=== PATIENT | female | born 1965 | race American Indian/Alaskan Native ===

== ENCOUNTER 2017-03-22 14:46 | Outpatient (CLI) | payer OTHER ==
--- NOTE | 2017-03-23 09:03 | XRay Report ---
Right shoulder: Multiple myeloma with focal pain on pressure to right shoulder. There is mixed sclerotic and lucent changes involving the glenoid and acromion. The joint is aligned. Compared to prior chest exam on December 10, 2015 there is more sclerosis. The sclerotic changes may be due to focal therapy and needs history correlation. The head of the humerus appears to be generally intact but not optimally visualized. Impressions: Interval sclerotic/lytic changes of right glenoid. These findings may be related to myeloma with treatment. Right rib series: Multiple myeloma with right with pain. Routine views demonstrate a somewhat mottled appearance with lytic change involving the third, fourth, fifth, sixth, seventh, and eighth ribs. There appears to be a focal expansion of the eighth rib possibly from prior fracture. The lower or ribs are not as well-visualized. Compared to metastatic bone survey in November 2015 there appears to be some progression of these findings. Impressions: Findings consistent with myeloma involvement of multiple ribs.
== END 2017-03-22 14:47 | disposition home or self-care (01) ==
LOC: XRAY 14:46
PROVIDERS: ATTEND Family Medicine
DX: R07.81 Pleurodynia (principal); M79.621 Pain in right upper arm; R10.9 Unspecified abdominal pain; M89.9 Disorder of bone, unspecified; I10 Essential (primary) hypertension; D64.9 Anemia, unspecified

== ENCOUNTER 2019-06-27 13:51 | Inpatient (IN) | payer MEDICARE ==
--- NOTE | 2019-06-27 14:13 | Emergency Department Report ---
ED Dizziness HPI - General Chief Complaint: Weakness Stated Complaint: weak Time Seen by Provider: 06/27/19 14:11 Source: patient, EMS Mode of arrival: Ambulatory Limitations: No Limitations - History of Present Illness Initial Comments: Pt is a 53 yo AA female who appears much older than stated age and who is ill appearing- who was sent to the ER by Dr Yun for anemia. Pt was diagnosed with Multiple Myeloma several years ago - she has received chemo. Pt co weakness and right knee pain. No fall or trauma. Denies fever. Endorses chills. No hypotension or tachycardia on admit. No fever on admit. Pt denies chest pain, abdominal pain, difficulty urinating. alert and oriented x 4. no focal neuro deficit on arrival to ER. pt does get sob when talking- so h/p limited at this time. no family at bedside. MD Complaint: lightheadedness -: Gradual, days(s) History of Same: Yes History of Trauma: No Associated Symptoms: shortness of breath - Related Data Home Medications Medication Instructions Recorded Confirmed Last Taken Dabigatran [Pradaxa] 150 mg PO DAILY 09/03/13 03/15/16 09/02/13 08:30 150 mg Diclofenac EC [Voltaren] 25 mg PO DAILY 09/03/13 03/15/16 09/01/13 18:30 25 mg Insulin Glargine,Hum.rec.anlog 15 units SQ HS 09/03/13 03/15/16 09/02/13 21:30 [Lantus Solostar] 15 units Morphine ER [Ms Contin ER] 60 mg PO BID PRN 09/03/13 03/15/16 09/02/13 21:30 60 mg NIFEdipine [Nifedipine ER] 30 mg PO DAILY 09/03/13 03/15/16 03/14/16 30 mg Oxycodone HCl 30 mg PO Q6HR PRN 09/03/13 03/15/16 03/09/16 30 mg Allergies Allergy/AdvReac Type Severity Reaction Status Date / Time No Known Allergies Allergy Verified 05/01/13 12:07 ED Review of Systems ROS: Stated complaint: DIZZY,CONFUSED Other details as noted in HPI Comment: All other systems reviewed and negative ED Past Medical Hx - Past Medical History Previous Medical History?: Yes Hx Hypertension: Yes Hx CVA: No Hx Heart Attack/AMI: No Hx Congestive Heart Failure: No Hx Diabetes: Yes Hx Deep Vein Thrombosis: Yes Hx Pulmonary Embolism: Yes (ivc filter) Hx GERD: No Hx Liver Disease: No Hx Renal Disease: No Hx of Cancer: Yes Hx Sickle Cell Disease: No Hx Arthritis: No Hx Headaches / Migraines: No Hx Seizures: No Hx Kidney Stones: No Hx Psychiatric Treatment: No Hx Asthma: No Hx COPD: No Hx Tuberculosis: No Hx Dementia: No Hx HIV: No Additional medical history: Multiple myeloma - Surgical History Past Surgical History?: Yes Hx Coronary Stent: No Hx Open Heart Surgery: No Hx Pacemaker: No Hx Internal Defibrillator: No Hx Cholecystectomy: No Hx Appendectomy: No Hx Breast Surgery: No Additional Surgical History: thigh/hip surgery - Family History Family history: no significant - Social History Smoking Status: Never Smoker Substance Use Type: None - Medications Home Medications: Home Medications Medication Instructions Recorded Confirmed Last Taken Type Dabigatran [Pradaxa] 150 mg PO DAILY 09/03/13 03/15/16 09/02/13 08:30 History 150 mg Diclofenac EC [Voltaren] 25 mg PO DAILY 09/03/13 03/15/16 09/01/13 18:30 History 25 mg Insulin Glargine,Hum.rec.anlog 15 units SQ HS 09/03/13 03/15/16 09/02/13 21:30 History [Lantus Solostar] 15 units Morphine ER [Ms Contin ER] 60 mg PO BID PRN 09/03/13 03/15/16 09/02/13 21:30 History 60 mg NIFEdipine [Nifedipine ER] 30 mg PO DAILY 09/03/13 03/15/16 03/14/16 History 30 mg Oxycodone HCl 30 mg PO Q6HR PRN 09/03/13 03/15/16 03/09/16 History 30 mg ED Physical Exam - General Limitations: No Limitations General appearance: alert - Head Head exam: Present: atraumatic, normocephalic - Eye Eye exam: Present: normal appearance - ENT ENT exam: Present: mucous membranes dry - Neck Neck exam: Present: normal inspection - Respiratory Respiratory exam: Present: normal lung sounds bilaterally. Absent: respiratory distress - Cardiovascular Cardiovascular Exam: Present: regular rate, normal rhythm, tachycardia. Absent: systolic murmur, diastolic murmur, rubs, gallop - GI/Abdominal GI/Abdominal exam: Present: soft, normal bowel sounds - Rectal Rectal exam: Present: deferred - Extremities Exam Extremities exam: Present: normal inspection - Expanded Lower Extremity Exam Right Upper Leg exam: Present: normal inspection Knee exam: Present: tenderness (post r knee red/tender and inflammed- no trauma; no distal swelling; dp plus 2 b; hx dvt; ivc filter; unlikely dvt given plt count. ), swelling, erythema, full knee extension Lower Leg exam: Present: normal inspection - Back Exam Back exam: Present: normal inspection - Neurological Exam Neurological exam: Present: alert, oriented X3 - Psychiatric Psychiatric exam: Present: normal affect, normal mood - Skin Skin exam: Present: warm, dry, intact. Absent: rash ED Course Vital Signs 06/27/19 06/27/19 06/27/19 14:00 14:04 14:19 Temperature 99.8 F H Pulse Rate 92 H 92 H Respiratory 20 20 20 Rate Blood Pressure 107/57 Blood Pressure 107/57 [Right] O2 Sat by Pulse 100 100 98 Oximetry ED Medical Decision Making - Lab Data Result diagrams: 06/27/19 15:22 06/27/19 14:37 - EKG Data -: EKG Interpreted by Ut EKG shows normal: sinus rhythm Rate: normal - EKG Data When compared to previous EKG there are: no significant change Interpretation: no acute changes - Radiology Data Radiology results: report reviewed, image reviewed - Medical Decision Making Labs 06/27/19 06/27/19 06/27/19 14:37 14:37 14:37 WBC RBC Hgb Hct MCV MCH MCHC RDW Plt Count Branch % (Auto) Baso % (Auto) Seg Neutrophils % PT 16.1 H INR 1.31 H APTT 33.9 Sodium 131 L Potassium 3.3 L Chloride 97.3 L Carbon Dioxide 19 L Anion Gap 18 BUN 15 Creatinine 0.7 Estimated GFR > 60 BUN/Creatinine Ratio 21 Glucose 277 H Calcium 8.8 Total Bilirubin 1.90 H AST 10 ALT 10 Alkaline Phosphatase 44 Troponin T < 0.010 Total Protein 6.8 Albumin 3.6 L Albumin/Globulin Ratio 1.1 HCG, Qual Negative Blood Type Antibody Screen Crossmatch 06/27/19 06/27/19 14:37 15:22 WBC 1.6 L* RBC 2.43 L Hgb 7.4 L Hct 21.4 L MCV 88 MCH 31 MCHC 35 H RDW 22.6 H Plt Count 12 L* Branch % (Auto) [employer] Baso % (Auto) [employer] Seg Neutrophils % [employer] PT INR APTT Sodium Potassium Chloride Carbon Dioxide Anion Gap BUN Creatinine Estimated GFR BUN/Creatinine Ratio Glucose Calcium Total Bilirubin AST ALT Alkaline Phosphatase Troponin T Total Protein Albumin Albumin/Globulin Ratio HCG, Qual Blood Type A POSITIVE Antibody Screen Negative Crossmatch See Detail Vital Signs 06/27/19 06/27/19 06/27/19 14:00 14:04 14:19 Temperature 99.8 F H Pulse Rate 92 H 92 H Respiratory 20 20 20 Rate Blood Pressure 107/57 Blood Pressure 107/57 [Right] O2 Sat by Pulse 100 100 98 Oximetry labs noted discussed with Dr Yun who would like pt to be admitted- will get 1 plt/1 RBC. pt co r knee pain concerning for cellulitis will cover with antibiotics p blood cultures and urine cultures are sent pt updated on plan of care Staffed with Dr Dennis Discussed case with Dr Juarez- will admit to obs. Critical care attestation.: If time is entered above; I have spent that time in minutes in the direct care of this critically ill patient, excluding procedure time. ED Disposition Clinical Impression: Multiple myeloma, Weakness, Knee pain, Thrombocytopenia, Anemia Disposition: 09 OP ADMIT IP TO THIS HOSP Is pt being admited?: Yes Does the pt Need Aspirin: No Condition: Stable Referrals: PRIMARY CARE, [Primary Care Provider] - 3-5 Days Time of Disposition: 16:23
--- NOTE | 2019-06-27 14:54 | XRay Report ---
CHEST 1 VIEW 06/27/2019 2:29 PM INDICATION / CLINICAL INFORMATION: Weakness. History of multiple myeloma. COMPARISON: Right shoulder radiographs and rib radiographs on 03/22/2017. FINDINGS: SUPPORT DEVICES: None. HEART / MEDIASTINUM: No significant abnormality. LUNGS / PLEURA: No significant pulmonary or pleural abnormality. No pneumothorax. ADDITIONAL FINDINGS: Scattered areas of lucency in the visualized axial skeleton appear unchanged. Th ere is an unchanged mixed lucent and sclerotic lesion in the right scapula. IMPRESSION: 1. No acute findings. 2. Unchanged chronic osseous findings related to the patient's known multiple myeloma. Signer Name: Antione Aguirre MD Signed: 06/27/2019 2:50 PM Workstation Name: [id number]
[2019-06-27] MEDS ORDERED: SODIUM CHLORIDE 0.9% 500 ML 500 ML IV SCH (15:00)
[2019-06-27 15:10] LABS: INR 1.31 (0.87-1.13)
[2019-06-27 15:11] LABS: Partial Thromboplastin Time 33.9 Sec. (24.2-36.6)
[2019-06-27 15:18] LABS: Alanine Aminotransferase 10 units/L (7-56); Albumin 3.6 g/dL (3.9-5); BUN/Creatinine Ratio 21; Blood Urea Nitrogen 15 mg/dL (7-17); Calcium 8.8 mg/dL (8.4-10.2); Hemolysis Index 1
[2019-06-27 16:04] LABS: Hematocrit 21.4 % (30.3-42.9); Hemoglobin 7.4 gm/dl (10.1-14.3); Mean Corpuscular HGB Conc 35 % (30-34); Mean Corpuscular Volume 88 fl (79-97); Red Blood Count 2.43 M/mm3 (3.65-5.03)
[2019-06-27 16:05] LABS: Red Cell Distribution Width 22.6 % (13.2-15.2)
[2019-06-27 16:08] LABS: Platelet Count 12 K/mm3 (140-440)
[2019-06-27] MEDS ORDERED: SODIUM CHLORIDE 0.9% 500 ML 500 ML IV ONE (16:15)
[2019-06-27] MEDS ORDERED: MORPHINE 60 MG PO PRN (17:04)
[2019-06-27] MEDS ORDERED: OXYCODONE HCL 30 MG PO PRN (17:04)
--- NOTE | 2019-06-27 17:04 | History and Physical Report ---
History of Present Illness Chief complaint: I feel weak History of present illness: 53 YO Female with Multiple Myeloma, Anemia, HTN, DM, DVT/PE S/P IVC Filter Placement, Chronic Pain presents to ED for evaluation. Pt states that she has experienced generalized weakness over the past 1 week with persistent symptoms over the same time frame. Pt seen and evaluated by her Oncologist, Dr. Yun and instructed to seek further care. EMS notified, and upon arrival the patient was found to be in distress and transported to [facility]. Pt seen and evaluated in ED and found to have symptomatic anemia, and severe thrombocytope chip with Platelet count of 12. Pt transfuse with platelets and PRBC. Dr Yun consulted in ED. Pt admitted to medical floor. Pt denies fever, chills, CP, Palpitations, NVD, Trauma, Headache, Dizziness, vision changes, Skin rash, bleeding, hematuria, BRBPR, or recent ill contacts. Prior admission on 07/10/13 reviewed. All listed medication reconciled at time of admission. Past History Past Medical History: other (see hpi) Past Surgical History: Other (thigh/Hip surgery) Social history: . denies: smoking, alcohol abuse, prescription drug abuse Family history: hypertension Medications and Allergies Allergies Allergy/AdvReac Type Severity Reaction Status Date / Time No Known Allergies Allergy Verified 05/01/13 12:07 Home Medications Medication Instructions Recorded Confirmed Last Taken Type Dabigatran [Pradaxa] 150 mg PO DAILY 09/03/13 03/15/16 09/02/13 08:30 History 150 mg Diclofenac EC [Voltaren] 25 mg PO DAILY 09/03/13 03/15/16 09/01/13 18:30 History 25 mg Insulin Glargine,Hum.rec.anlog 15 units SQ HS 09/03/13 03/15/16 09/02/13 21:30 History [Lantus Solostar] 15 units Morphine ER [Ms Contin ER] 60 mg PO BID PRN 09/03/13 03/15/16 09/02/13 21:30 Hi story 60 mg NIFEdipine [Nifedipine ER] 30 mg PO DAILY 09/03/13 03/15/16 03/14/16 History 30 mg Oxycodone HCl 30 mg PO Q6HR PRN 09/03/13 03/15/16 03/09/16 History 30 mg Active Meds: Active Medications Sodium Chloride (Nacl 0.9% 500 Ml) 500 mls @ 50 mls/hr IV DIRECT SAVANNA Cefazolin Sodium 2 gm/ Sodium (Chloride) 100 mls @ 200 mls/hr IV ONCE ONE; Protocol Stop: 06/27/19 17:29 Review of Systems Constitutional: weakness, malaise, no weight loss, no weight gain, no fever, no chills Ears, nose, mouth and throat: no ear pain, no ear discharge, no decreased hearing, no nose pain, no nasal congestion Breasts: no change in shape, no swelling, no mass Cardiovascular: no chest pain, no orthopnea, no palpitations, no rapid/irregular heart beat, no edema, no syncope Respiratory: no cough, no cough with sputum, no excessive sputum Gastrointestinal: no abdominal pain, no nausea, no diarrhea, no constipation, no hematemesis, no coffee ground emesis Genitourinary Female: no pelvic pain, no flank pain, no menorrhagia, no dysuria, no urinary frequency Rectal: no pain, no incontinence, no bleeding Musculoskeletal: no neck stiffness, no neck pain, no shooting arm pain, no arm numbness/tingling, no low back pain, no leg numbness/tingling Integumentary: no rash, no pruritis, no redness, no sores, no wounds, no boils Neurological: no transient paralysis, no paralysis, no weakness, no parathesias, no seizures, no syncope, no tremors, no ataxia Psychiatric: no anxiety, no memory loss, no change in sleep habits, no insomnia, no hypersomnia Endocrine: no cold intolerance, no heat intolerance, no excessive thirst, no polydipsia, no polyuria, no nocturia Hematologic/Lymphatic: no easy bruising, no easy bleeding, no lymphadenopathy, no lymphedema Allergic/Immunologic: no urticaria, no allergic rhinitis, no wheezing, no persistent infections, no anaphylaxis, no angioedema Exam - Constitutional Vitals: Temp Pulse Resp BP Pulse Ox 99.8 F H 92 H 20 107/57 98 06/27/19 14:04 06/27/19 14:04 06/27/19 14:19 06/27/19 14:04 06/27/19 14:19 General appearance: Present: mild distress - EENT Eyes: Present: PERRL ENT: hearing intact, clear oral mucosa - Neck Neck: Present: supple, normal ROM - Respiratory Respiratory effort: normal Respiratory: bilateral: CTA - Cardiovascular Heart Sounds: Present: S1 & S2. Absent: rub, click - Extremities Extremities: pulses symmetrical, No edema Peripheral Pulses: within normal limits - Abdominal General gastrointestinal: Present: soft, non-tender, non-distended, normal bowel sounds Female genitourinary: Present: normal - Integumentary Integumentary: Present: clear, warm, dry - Musculoskeletal Musculoskeletal: gait normal, strength equal bilaterally - Psychiatric Psychiatric: appropriate mood/affect, intact judgment & insight - Neurologic Neurologic: CNII-XII intact, moves all extremities Results - Labs CBC & Chem 7: 06/27/19 15:22 06/27/19 14:37 Labs: Abnormal lab results 06/27/19 06/27/19 06/27/19 Range/Units 14:37 14:37 14:37 WBC (4.5-11.0) K/mm3 RBC (3.65-5.03) M/mm3 Hgb (10.1-14.3) gm/dl Hct (30.3-42.9) % MCHC (30-34) % RDW (13.2-15.2) % Plt Count (140-440) K/mm3 PT 16.1 H (12.2-14.9) Sec. INR 1.31 H (0.87-1.13) Sodium 131 L (137-145) mmol/L Potassium 3.3 L (3.6-5.0) mmol/L Chloride 97.3 L (98-107) mmol/L Carbon Dioxide 19 L (22-30) mmol/L Glucose 277 H (65-100) mg/dL Total Bilirubin 1.90 H (0.1-1.2) mg/dL Albumin 3.6 L (3.9-5) g/dL Crossmatch See Detail 06/27/19 Range/Units 15:22 WBC 1.6 L* (4.5-11.0) K/mm3 RBC 2.43 L (3.65-5.03) M/mm3 Hgb 7.4 L (10.1-14.3) gm/dl Hct 21.4 L (30.3-42.9) % MCHC 35 H (30-34) % RDW 22.6 H (13.2-15.2) % Plt Count 12 L* (140-440) K/mm3 PT (12.2-14.9) Sec. INR (0.87-1.13) Sodium (137-145) mmol/L Potassium (3.6-5.0) mmol/L Chloride (98-107) mmol/L Carbon Dioxide (22-30) mmol/L Glucose (65-100) mg/dL Total Bilirubin (0.1-1.2) mg/dL Albumin (3.9-5) g/dL Crossmatch Assessment and Plan - Patient Problems (1) Multiple myeloma Current Visit: Yes Status: Acute Qualifiers: Multiple myeloma remission status: not in remission Qualified Code(s): C90.00 - Multiple myeloma not having achieved remission Plan to address problem: supportive care, Hematology consulted, (2) Thrombocytopenia Current Visit: Yes Status: Acute Plan to address problem: Platelet transfusion, cbc in am. (3) Pancytopenia Current Visit: Yes Status: Acute Plan to address problem: Hematology consulted, supportive care, PRBC and platelet transfusion, neutropenic precautions. (4) DVT prophylaxis Current Visit: Yes Status: Acute Plan to address problem: SCD to BLE while in bed, hold anticoagulation due to risk of bleeding
[2019-06-27 17:06] LABS: Anisocytosis 1+; Total Cells Counted 100
[2019-06-27] MEDS ORDERED: ALBUTEROL 2.5 MG/3 ML NEBU IH PRN (17:06)
[2019-06-27] MEDS ORDERED: ONDANSETRON 4 MG/2 ML INJ IV PRN (17:06)
[2019-06-27 17:08] LABS: Platelet Clumps 1+
[2019-06-27] MEDS ORDERED: MORPHINE 30 MG ER TAB PO PRN (17:13)
--- NOTE | 2019-06-27 17:30 | XRay Report ---
XR knee 1-2V RT INDICATION / CLINICAL INFORMATION: pain r knee. COMPARISON: None available. FINDINGS: BONES/JOINT(S): No acute fracture or subluxation. Previous intramedullary bob placement in the right femoral shaft without periprosthetic fracture or loosening. 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 No significant joint effusion. SOFT TISSUES: No significant abnormality. ADDITIONAL FINDINGS: None. Signer Name: Antione Aguirre MD Signed: 06/27/2019 5:26 PM Workstation Name: [id number]
[2019-06-27] MEDS ORDERED: PANTOPRAZOLE 20 MG TAB PO ONE (17:34)
[2019-06-27] MEDS ORDERED: HYDROmorphone 2 MG/1 ML INJ IV ONE (17:37)
[2019-06-27] MEDS ORDERED: HYDROmorphone 2 MG/1 ML INJ ONE (17:38)
[2019-06-27 18:08] LABS: Benzodiazepines Screen,Urine PRESUMPTIVE NEGATIVE; Cannabinoid Screen,Urine PRESUMPTIVE NEGATIVE; Cocaine Screen,Urine PRESUMPTIVE NEGATIVE; Methadone Screen,Urine PRESUMPTIVE NEGATIVE; Opiate Screen,Urine PRESUMPTIVE NEGATIVE
[2019-06-27 18:18] LABS: Bacteria,Urine 1+ /HPF (Negative); Bilirubin,Urine NEG (Negative); Blood,Urine SM (Negative); Color,Urine Yellow (Yellow); Mucus,Urine FEW /HPF; Protein,Urine <15 mg/dL mg/dL (Negative)
[2019-06-27 18:31] LABS: Amphetamine Screen,Urine PRESUMPTIVE NEGATIVE
[2019-06-27] MEDS: FAMOTIDINE 10 MG TAB PO SCH (23:44)
[2019-06-28] MEDS: ACETAMINOPHEN 325 MG TAB PO PRN (00:42)
[2019-06-28] MEDS ORDERED: NON-FORMULARY EACH (Nifedipine [Nifedipine Er] 30 MG) PO SCH (10:00)
[2019-06-28] MEDS: NIFEdipine XL 30 MG TAB PO SCH (11:04)
[2019-06-28] MEDS: FAMOTIDINE 10 MG TAB PO SCH ×2 (11:04→21:45)
--- NOTE | 2019-06-28 12:01 | Progress Note ---
Assessment and Plan Assessment and plan: Multiple myeloma. Hematology consultation pending. Pancytopenia. Etiology secondary to above. Thrombocytopenia. Patient to receive platelet transfusion. Leukopenia. Initiate neutropenic precautions. Start empiric antibiotics. Anemia. Etiology secondary to above. Patient to receive PRBCs History Interval history: No new issues overnight. Hospitalist Physical - Constitutional Vitals: Temp Pulse Resp BP Pulse Ox 98.9 F 80 18 93/47 100 06/28/19 04:49 06/28/19 05:30 06/28/19 04:49 06/28/19 05:30 06/28/19 05:30 General appearance: Present: no acute distress - EENT Eyes: Present: PERRL, EOM intact ENT: hearing intact, clear oral mucosa, dentition normal - Neck Neck: Present: supple, normal ROM - Respiratory Respiratory effort: normal Respiratory: bilateral: CTA - Cardiovascular Rhythm: regular Heart Sounds: Present: S1 & S2. Absent: gallop, rub - Extremities Extremities: no ischemia, No edema, Full ROM - Abdominal General gastrointestinal: soft, non-tender, non-distended, normal bowel sounds - Integumentary Integumentary: Present: clear, warm, dry - Neurologic Neurologic: CNII-XII intact, moves all extremities Results - Labs CBC & Chem 7: 06/27/19 15:22 06/27/19 14:37 Labs: Laboratory Last Values WBC 1.6 K/mm3 (4.5-11.0) L* 06/27/19 15:22 RBC 2.43 M/mm3 (3.65-5.03) L 06/27/19 15:22 Hgb 7.4 gm/dl (10.1-14.3) L 06/27/19 15:22 Hct 21.4 % (30.3-42.9) L 06/27/19 15:22 MCV 88 fl (79-97) 06/27/19 15:22 MCH 31 pg (28-32) 06/27/19 15:22 MCHC 35 % (30-34) H 06/27/19 15:22 RDW 22.6 % (13.2-15.2) H 06/27/19 15:22 Plt Count 12 K/mm3 (140-440) L* 06/27/19 15:22 [place] % (Auto) Animal Laboratory Helper 06/27/19 15:22 Baso % (Auto) Animal Laboratory Helper 06/27/19 15:22 Add Manual Diff Complete 06/27/19 15:22 Total Counted 100 06/27/19 15:22 Seg Neutrophils % Animal Laboratory Helper 06/27/19 15:22 Seg Neuts % (Manual) 25.0 % (40.0-70.0) L 06/27/19 15:22 Band Neutrophils % 0 % 06/27/19 15:22 Lymphocytes % (Manual) 41.0 % (13.4-35.0) H 06/27/19 15:22 Reactive Lymphs % (Man) 0 % 06/27/19 15:22 Monocytes % (Manual) 27.0 % (0.0-7.3) H 06/27/19 15:22 Eosinophils % (Manual) 2.0 % (0.0-4.3) 06/27/19 15:22 Basophils % (Manual) 5.0 % (0.0-1.8) H 06/27/19 15:22 Metamyelocytes % 0 % 06/27/19 15:22 Myelocytes % 0 % 06/27/19 15:22 Promyelocytes % 0 % 06/27/19 15:22 Blast Cells % 0 % 06/27/19 15:22 Nucleated RBC % Not Reportable 06/27/19 15:22 Seg Neutrophils # Man 0.4 K/mm3 (1.8-7.7) L 06/27/19 15:22 Band Neutrophils # 0.0 K/mm3 06/27/19 15:22 Lymphocytes # (Manual) 0.7 K/mm3 (1.2-5.4) L 06/27/19 15:22 Abs React Lymphs (Man) 0.0 K/mm3 06/27/19 15:22 Monocytes # (Manual) 0.4 K/mm3 (0.0-0.8) 06/27/19 15:22 Eosinophils # (Manual) 0.0 K/mm3 (0.0-0.4) 06/27/19 15:22 Basophils # (Manual) 0.1 K/mm3 (0.0-0.1) 06/27/19 15:22 Metamyelocytes # 0.0 K/mm3 06/27/19 15:22 Myelocytes # 0.0 K/mm3 06/27/19 15:22 Promyelocytes # 0.0 K/mm3 06/27/19 15:22 Blast Cells # 0.0 K/mm3 06/27/19 15:22 WBC Morphology Not Reportable 06/27/19 15:22 Hypersegmented Neuts Not Reportable 06/27/19 15:22 Hyposegmented Neuts Not Reportable 06/27/19 15:22 Hypogranular Neuts Not Reportable 06/27/19 15:22 Smudge Cells Not Reportable 06/27/19 15:22 Toxic Granulation Not Reportable 06/27/19 15:22 Toxic Vacuolation Not Reportable 06/27/19 15:22 Dohle Bodies Not Reportable 06/27/19 15:22 Pelger-Huet Anomaly Not Reportable 06/27/19 15:22 Leticia Rods Not Reportable 06/27/19 15:22 Platelet Estimate Not Reportable 06/27/19 15:22 Clumped Platelets 1+ 06/27/19 15:22 Plt Clumps, EDTA Not Reportable 06/27/19 15:22 Large Platelets Not Reportable 06/27/19 15:22 Giant Platelets Not Reportable 06/27/19 15:22 Platelet Satelliting Not Reportable 06/27/19 15:22 Plt Morphology Comment Not Reportable 06/27/19 15:22 RBC Morphology Not Reportable 06/27/19 15:22 Dimorphic RBCs Not Reportable 06/27/19 15:22 Polychromasia Not Reportable 06/27/19 15:22 Hypochromasia Not Reportable 06/27/19 15:22 Poikilocytosis Not Reportable 06/27/19 15:22 Anisocytosis 1+ 06/27/19 15:22 Microcytosis 2+ 06/27/19 15:22 Macrocytosis Not Reportable 06/27/19 15:22 Spherocytes Not Reportable 06/27/19 15:22 Pappenheimer Bodies Not Reportable 06/27/19 15:22 Sickle Cells Not Reportable 06/27/19 15:22 Target Cells Not Reportable 06/27/19 15:22 Tear Drop Cells Not Reportable 06/27/19 15:22 Ovalocytes Not Reportable 06/27/19 15:22 Helmet Cells Not Reportable 06/27/19 15:22 [place] Bodies Not Reportable 06/27/19 15:22 [place] Rings Not Reportable 06/27/19 15:22 Ivonne Cells Not Reportable 06/27/19 15:22 Bite Cells Not Reportable 06/27/19 15:22 Crenated Cell Not Reportable 06/27/19 15:22 Elliptocytes Not Reportable 06/27/19 15:22 Acanthocytes (Spur) Not Reportable 06/27/19 15:22 Rouleaux Not Reportable 06/27/19 15:22 Hemoglobin C Crystals Not Reportable 06/27/19 15:22 Schistocytes Not Reportable 06/27/19 15:22 Malaria parasites Not Reportable 06/27/19 15:22 Roger Bodies Not Reportable 06/27/19 15:22 Hem Pathologist Commnt No 06/27/19 15:22 PT 16.1 Sec. (12.2-14.9) H 06/27/19 14:37 INR 1.31 (0.87-1.13) H 06/27/19 14:37 APTT 33.9 Sec. (24.2-36.6) 06/27/19 14:37 Sodium 131 mmol/L (137-145) L 06/27/19 14:37 Potassium 3.3 mmol/L (3.6-5.0) L 06/27/19 14:37 Chloride 97.3 mmol/L (98-107) L 06/27/19 14:37 Carbon Dioxide 19 mmol/L (22-30) L 06/27/19 14:37 Anion Gap 18 mmol/L 06/27/19 14:37 BUN 15 mg/dL (7-17) 06/27/19 14:37 Creatinine 0.7 mg/dL (0.7-1.2) 06/27/19 14:37 Estimated GFR > 60 ml/min 06/27/19 14:37 BUN/Creatinine Ratio 21 % 06/27/19 14:37 Glucose 277 mg/dL (65-100) H 06/27/19 14:37 POC Glucose 191 (70-105) H 06/28/19 08:01 Calcium 8.8 mg/dL (8.4-10.2) 06/27/19 14:37 Total Bilirubin 1.90 mg/dL (0.1-1.2) H 06/27/19 14:37 AST 10 units/L (5-40) 06/27/19 14:37 ALT 10 units/L (7-56) 06/27/19 14:37 Alkaline Phosphatase 44 units/L (35-129) 06/27/19 14:37 Troponin T < 0.010 ng/mL (0.00-0.029) 06/27/19 14:37 Total Protein 6.8 g/dL (6.3-8.2) 06/27/19 14:37 Albumin 3.6 g/dL (3.9-5) L 06/27/19 14:37 Albumin/Globulin Ratio 1.1 % 06/27/19 14:37 HCG, Qual Negative (Negative) 06/27/19 14:37 Urine Color Yellow (Yellow) 06/27/19 15:06 Urine Turbidity Slightly-cloudy (Clear) 06/27/19 15:06 Urine pH 5.0 (5.0-7.0) 06/27/19 15:06 Ur Specific [place] 1.011 (1.003-1.030) 06/27/19 15:06 Urine Protein <15 mg/dl mg/dL (Negative) 06/27/19 15:06 Urine Glucose (UA) >=500 mg/dL (Negative) 06/27/19 15:06 Urine Ketones Neg mg/dL (Negative) 06/27/19 15:06 Urine Blood Sm (Negative) 06/27/19 15:06 Urine Nitrite Neg (Negative) 06/27/19 15:06 Urine Bilirubin Neg (Negative) 06/27/19 15:06 Urine Urobilinogen 2.0 mg/dL (<2.0) 06/27/19 15:06 Ur Leukocyte Esterase Tr (Negative) 06/27/19 15:06 Urine WBC (Auto) 8.0 /HPF (0.0-6.0) H 06/27/19 15:06 Urine RBC (Auto) 7.0 /HPF (0.0-6.0) 06/27/19 15:06 U Epithel Cells (Auto) 5.0 /HPF (0-13.0) 06/27/19 15:06 Urine Bacteria (Auto) 1+ /HPF (Negative) 06/27/19 15:06 Urine Mucus Few /HPF 06/27/19 15:06 Urine Yeast (Budding) Few /HPF 06/27/19 15:06 Urine Opiates Screen Presumptive negative 06/27/19 15:06 Urine Methadone Screen Presumptive negative 06/27/19 15:06 Ur Barbiturates Screen Presumptive negative 06/27/19 15:06 Ur Phencyclidine Scrn Presumptive negative 06/27/19 15:06 Ur Amphetamines Screen Presumptive negative 06/27/19 15:06 U Benzodiazepines Scrn Presumptive negative 06/27/19 15:06 Urine Cocaine Screen Presumptive negative 06/27/19 15:06 U Marijuana (THC) Screen Presumptive negative 06/27/19 15:06 Drugs of Abuse Note Disclamer 06/27/19 15:06 Blood Type A POSITIVE 06/27/19 14:37 Antibody Screen Negative 06/27/19 14:37 Crossmatch See Detail 06/27/19 14:37 Active Medications - Current Medications Current Medications: Generic Name Dose Route Start Last Admin Trade Name Freq PRN Reason Stop Dose Admin Acetaminophen 650 mg 06/27/19 17:06 06/28/19 00:42 Tylenol PO 650 mg Q4H PRN Administration Pain MILD(1-3)/Fever >100.5/TREJO Albuterol 2.5 mg 06/27/19 17:06 Proventil IH Q4HRT PRN Shortness Of Breath Diclofenac Sodium 25 mg 06/28/19 10:00 Voltaren PO DAILY SAVANNA Famotidine 10 mg 06/27/19 22:00 06/28/19 11:04 Pepcid PO 10 mg BID SAVANNA Administration Sodium Chloride 500 mls @ 50 mls/hr 06/27/19 15:00 Nacl 0.9% 500 Ml IV DIRECT SAVANNA Morphine Sulfate 60 mg 06/27/19 17:13 Ms Contin Er PO BID PRN Pain, Moderate (4-6) Nifedipine 30 mg 06/28/19 10:00 06/28/19 11:04 Procardia Xl PO 30 mg QDAY SAVANNA Administration Ondansetron HCl 4 mg 06/27/19 17:06 Zofran IV Q8H PRN Nausea And Vomiting Oxycodone HCl 30 mg 06/27/19 17:15 Roxicodone PO Q6H PRN Pain, Moderate (4-6) Sodium Chloride 10 ml 06/27/19 22:00 06/28/19 11:04 Sodium Chloride Flush Syringe 10 Ml IV 10 ml BID SAVANNA Administration Sodium Chloride 10 ml 06/27/19 17:06 Sodium Chloride Flush Syringe 10 Ml IV PRN PRN LINE FLUSH Nutrition/Malnutrition Assess - Dietary Evaluation Nutrition/Malnutrition Findings: Nutrition Notes Start: 06/28/19 09:53 Freq: Status: Active Protocol: Document 06/28/19 09:53 AMIRA (Rec: 06/28/19 10:27 AMIRA [id number]) Co-Sign 06/28/19 09:53 LP Nutrition Notes Need for Assessment generated from: MD Order,MST Initial or Follow up Assessment Current Diagnosis Diabetes,Hypertension Other Pertinent Diagnosis Multiple myeloma, Anemia, S/P IVC filter placement Current Diet Diet supplement Labs/Tests Na 131 K 3.3 Cl 97.3 BG 277 Pertinent Medications Reviewed Height 5 ft 2 in Weight 62.9 kg Usual Body Weight 61.4 kg [place] Body Weight (kg) 50.00 BMI 25.3 Intake Prior to Admission Good Weight Status Overweight Subjective/Other Information MD consult for poor oral intake, and MST assessment. 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 Stated she didn' t experience any wt loss. Noted full glucerna at bedside . Burn Absent Trauma Absent GI Symptoms None Minimum of two criteria No physical signs of malnutrition #1 Nutrition Diagnosis Predicted suboptimal energy intake Etiology Multiple myeloma, lethargy As Evidenced by Signs and Symptoms Full glucerna at bedside Is patient on ventilator? No Is Patient Ambulatory and/or Out of Bed No REE-([facility]-confined to bed) 1440.840 Calculation Used for Recommendations [facility] Additional Notes Protein: 50-63g/kg (0.8-1g/kg) Fluid: 1ml/kcal Nutrition Intervention Change Diet Order: Advance diet when medically feasible Goal #1 Meet at least 75% of energy and protein needs via PO and ONS intake Anticipated Discharge Needs: Cardiac consistent carb diet Follow-Up By: 07/02/19 Additional Comments F/U for diet advancement, PO, and ONS intakes.
[2019-06-28] MEDS: DICLOFENAC EC 25 MG TAB PO SCH (12:09)
--- NOTE | 2019-06-28 20:52 | Event Note ---
Date: 06/28/19
[2019-06-28] MEDS: INSULIN LISPRO 100 UNIT/ML SUB-Q SCH (21:51)
[2019-06-29] MEDS: oxyCODONE 5 MG TAB PO PRN ×2 (00:50→14:24)
[2019-06-29] MEDS: INSULIN LISPRO 100 UNIT/ML SUB-Q SCH ×4 (08:46→22:36)
[2019-06-29 10:39] LABS: Hemoglobin 7.9 gm/dl (10.1-14.3); Mean Corpuscular HGB Conc 34 % (30-34); Mean Corpuscular Volume 90 fl (79-97); Red Blood Count 2.57 M/mm3 (3.65-5.03); Red Cell Distribution Width 19.1 % (13.2-15.2)
[2019-06-29 10:56] LABS: Platelet Count 34 K/mm3 (140-440)
[2019-06-29] MEDS ORDERED: POTASSIUM CHLORIDE ER 20 MEQ TAB PO ONE (11:23)
--- NOTE | 2019-06-29 11:23 | Progress Note ---
Assessment and Plan Assessment and plan: Multiple myeloma. Hematology consultation pending. Pancytopenia. Etiology secondary to above. Thrombocytopenia. Patient to receive platelet transfusion. Leukopenia. Continue neutropenic precautions. Continue IV antibiotics. Hypokalemia. Replete potassium. Anemia. Etiology secondary to above. Patient to receive PRBCs for hemoglobin less than 7 History Interval history: No new issues overnight. Hospitalist Physical - Constitutional Vitals: Temp Pulse Resp BP Pulse Ox 99.6 F 128 H 20 162/88 100 06/29/19 06:43 06/29/19 06:43 06/29/19 06:43 06/29/19 06:43 06/29/19 06:43 General appearance: Present: no acute distress - EENT Eyes: Present: PERRL, EOM intact ENT: hearing intact, clear oral mucosa, dentition normal - Neck Neck: Present: supple, normal ROM - Respiratory Respiratory effort: normal Respiratory: bilateral: CTA - Cardiovascular Rhythm: regular Heart Sounds: Present: S1 & S2. Absent: gallop, rub - Extremities Extremities: no ischemia, No edema, Full ROM - Abdominal General gastrointestinal: soft, non-tender, non-distended, normal bowel sounds - Integumentary Integumentary: Present: clear, warm, dry - Neurologic Neurologic: CNII-XII intact, moves all extremities Results - Labs CBC & Chem 7: 06/29/19 10:15 06/27/19 14:37 Labs: Laboratory Last Values WBC 1.4 K/mm3 (4.5-11.0) L* 06/29/19 10:15 RBC 2.57 M/mm3 (3.65-5.03) L 06/29/19 10:15 Hgb 7.9 gm/dl (10.1-14.3) L 06/29/19 10:15 Hct 23.0 % (30.3-42.9) L 06/29/19 10:15 MCV 90 fl (79-97) 06/29/19 10:15 MCH 31 pg (28-32) 06/29/19 10:15 MCHC 34 % (30-34) 06/29/19 10:15 RDW 19.1 % (13.2-15.2) H 06/29/19 10:15 Plt Count 34 K/mm3 (140-440) L D 06/29/19 10:15 Lymph % (Auto) Ceramic Artist 06/29/19 10:15 [place] % (Auto) Ceramic Artist 06/27/19 15:22 Baso % (Auto) Ceramic Artist 06/29/19 10:15 Add Manual Diff Complete 06/27/19 15:22 Total Counted 100 06/27/19 15:22 Seg Neutrophils % Ceramic Artist 06/29/19 10:15 Seg Neuts % (Manual) 25.0 % (40.0-70.0) L 06/27/19 15:22 Band Neutrophils % 0 % 06/27/19 15:22 Lymphocytes % (Manual) 41.0 % (13.4-35.0) H 06/27/19 15:22 Reactive Lymphs % (Man) 0 % 06/27/19 15:22 Monocytes % (Manual) 27.0 % (0.0-7.3) H 06/27/19 15:22 Eosinophils % (Manual) 2.0 % (0.0-4.3) 06/27/19 15:22 Basophils % (Manual) 5.0 % (0.0-1.8) H 06/27/19 15:22 Metamyelocytes % 0 % 06/27/19 15:22 Myelocytes % 0 % 06/27/19 15:22 Promyelocytes % 0 % 06/27/19 15:22 Blast Cells % 0 % 06/27/19 15:22 Nucleated RBC % Not Reportable 06/27/19 15:22 Seg Neutrophils # Man 0.4 K/mm3 (1.8-7.7) L 06/27/19 15:22 Band Neutrophils # 0.0 K/mm3 06/27/19 15:22 Lymphocytes # (Manual) 0.7 K/mm3 (1.2-5.4) L 06/27/19 15:22 Abs React Lymphs (Man) 0.0 K/mm3 06/27/19 15:22 Monocytes # (Manual) 0.4 K/mm3 (0.0-0.8) 06/27/19 15:22 Eosinophils # (Manual) 0.0 K/mm3 (0.0-0.4) 06/27/19 15:22 Basophils # (Manual) 0.1 K/mm3 (0.0-0.1) 06/27/19 15:22 Metamyelocytes # 0.0 K/mm3 06/27/19 15:22 Myelocytes # 0.0 K/mm3 06/27/19 15:22 Promyelocytes # 0.0 K/mm3 06/27/19 15:22 Blast Cells # 0.0 K/mm3 06/27/19 15:22 WBC Morphology Not Reportable 06/27/19 15:22 Hypersegmented Neuts Not Reportable 06/27/19 15:22 Hyposegmented Neuts Not Reportable 06/27/19 15:22 Hypogranular Neuts Not Reportable 06/27/19 15:22 Smudge Cells Not Reportable 06/27/19 15:22 Toxic Granulation Not Reportable 06/27/19 15:22 Toxic Vacuolation Not Reportable 06/27/19 15:22 Dohle Bodies Not Reportable 06/27/19 15:22 Pelger-Huet Anomaly Not Reportable 06/27/19 15:22 Leticia Rods Not Reportable 06/27/19 15:22 Platelet Estimate Not Reportable 06/27/19 15:22 Clumped Platelets 1+ 06/27/19 15:22 Plt Clumps, EDTA Not Reportable 06/27/19 15:22 Large Platelets Not Reportable 06/27/19 15:22 Giant Platelets Not Reportable 06/27/19 15:22 Platelet Satelliting Not Reportable 06/27/19 15:22 Plt Morphology Comment Not Reportable 06/27/19 15:22 RBC Morphology Not Reportable 06/27/19 15:22 Dimorphic RBCs Not Reportable 06/27/19 15:22 Polychromasia Not Reportable 06/27/19 15:22 Hypochromasia Not Reportable 06/27/19 15:22 Poikilocytosis Not Reportable 06/27/19 15:22 Anisocytosis 1+ 06/27/19 15:22 Microcytosis 2+ 06/27/19 15:22 Macrocytosis Not Reportable 06/27/19 15:22 Spherocytes Not Reportable 06/27/19 15:22 Pappenheimer Bodies Not Reportable 06/27/19 15:22 Sickle Cells Not Reportable 06/27/19 15:22 Target Cells Not Reportable 06/27/19 15:22 Tear Drop Cells Not Reportable 06/27/19 15:22 Ovalocytes Not Reportable 06/27/19 15:22 Helmet Cells Not Reportable 06/27/19 15:22 [place] Bodies Not Reportable 06/27/19 15:22 [place] Rings Not Reportable 06/27/19 15:22 Ivonne Cells Not Reportable 06/27/19 15:22 Bite Cells Not Reportable 06/27/19 15:22 Crenated Cell Not Reportable 06/27/19 15:22 Elliptocytes Not Reportable 06/27/19 15:22 Acanthocytes (Spur) Not Reportable 06/27/19 15:22 Rouleaux Not Reportable 06/27/19 15:22 Hemoglobin C Crystals Not Reportable 06/27/19 15:22 Schistocytes Not Reportable 06/27/19 15:22 Malaria parasites Not Reportable 06/27/19 15:22 Roger Bodies Not Reportable 06/27/19 15:22 Hem Pathologist Commnt No 06/27/19 15:22 PT 16.1 Sec. (12.2-14.9) H 06/27/19 14:37 INR 1.31 (0.87-1.13) H 06/27/19 14:37 APTT 33.9 Sec. (24.2-36.6) 06/27/19 14:37 Sodium 131 mmol/L (137-145) L 06/27/19 14:37 Potassium 3.3 mmol/L (3.6-5.0) L 06/27/19 14:37 Chloride 97.3 mmol/L (98-107) L 06/27/19 14:37 Carbon Dioxide 19 mmol/L (22-30) L 06/27/19 14:37 Anion Gap 18 mmol/L 06/27/19 14:37 BUN 15 mg/dL (7-17) 06/27/19 14:37 Creatinine 0.7 mg/dL (0.7-1.2) 06/27/19 14:37 Estimated GFR > 60 ml/min 06/27/19 14:37 BUN/Creatinine Ratio 21 % 06/27/19 14:37 Glucose 277 mg/dL (65-100) H 06/27/19 14:37 POC Glucose 252 (70-105) H 06/29/19 08:38 Calcium 8.8 mg/dL (8.4-10.2) 06/27/19 14:37 Total Bilirubin 1.90 mg/dL (0.1-1.2) H 06/27/19 14:37 AST 10 units/L (5-40) 06/27/19 14:37 ALT 10 units/L (7-56) 06/27/19 14:37 Alkaline Phosphatase 44 units/L (35-129) 06/27/19 14:37 Troponin T < 0.010 ng/mL (0.00-0.029) 06/27/19 14:37 Total Protein 6.8 g/dL (6.3-8.2) 06/27/19 14:37 Albumin 3.6 g/dL (3.9-5) L 06/27/19 14:37 Albumin/Globulin Ratio 1.1 % 06/27/19 14:37 HCG, Qual Negative (Negative) 06/27/19 14:37 Urine Color Yellow (Yellow) 06/27/19 15:06 Urine Turbidity Slightly-cloudy (Clear) 06/27/19 15:06 Urine pH 5.0 (5.0-7.0) 06/27/19 15:06 Ur Specific [place] 1.011 (1.003-1.030) 06/27/19 15:06 Urine Protein <15 mg/dl mg/dL (Negative) 06/27/19 15:06 Urine Glucose (UA) >=500 mg/dL (Negative) 06/27/19 15:06 Urine Ketones Neg mg/dL (Negative) 06/27/19 15:06 Urine Blood Sm (Negative) 06/27/19 15:06 Urine Nitrite Neg (Negative) 06/27/19 15:06 Urine Bilirubin Neg (Negative) 06/27/19 15:06 Urine Urobilinogen 2.0 mg/dL (<2.0) 06/27/19 15:06 Ur Leukocyte Esterase Tr (Negative) 06/27/19 15:06 Urine WBC (Auto) 8.0 /HPF (0.0-6.0) H 06/27/19 15:06 Urine RBC (Auto) 7.0 /HPF (0.0-6.0) 06/27/19 15:06 U Epithel Cells (Auto) 5.0 /HPF (0-13.0) 06/27/19 15:06 Urine Bacteria (Auto) 1+ /HPF (Negative) 06/27/19 15:06 Urine Mucus Few /HPF 06/27/19 15:06 Urine Yeast (Budding) Few /HPF 06/27/19 15:06 Urine Opiates Screen Presumptive negative 06/27/19 15:06 Urine Methadone Screen Presumptive negative 06/27/19 15:06 Ur Barbiturates Screen Presumptive negative 06/27/19 15:06 Ur Phencyclidine Scrn Presumptive negative 06/27/19 15:06 Ur Amphetamines Screen Presumptive negative 06/27/19 15:06 U Benzodiazepines Scrn Presumptive negative 06/27/19 15:06 Urine Cocaine Screen Presumptive negative 06/27/19 15:06 U Marijuana (THC) Screen Presumptive negative 06/27/19 15:06 Drugs of Abuse Note Disclamer 06/27/19 15:06 Blood Type A POSITIVE 06/27/19 14:37 Antibody Screen Negative 06/27/19 14:37 Crossmatch See Detail 06/27/19 14:37 Active Medications - Current Medications Current Medications: Generic Name Dose Route Start Last Admin Trade Name Vishal PRN Reason Stop Dose Admin Acetaminophen 650 mg 06/27/19 17:06 06/28/19 00:42 Tylenol PO 650 mg Q4H PRN Administration Pain MILD(1-3)/Fever >100.5/TREJO Albuterol 2.5 mg 06/27/19 17:06 Proventil IH Q4HRT PRN Shortness Of Breath Diclofenac Sodium 25 mg 06/28/19 10:00 06/28/19 12:09 Voltaren PO 25 mg DAILY SAVANNA Administration Famotidine 10 mg 06/27/19 22:00 06/28/19 21:45 Pepcid PO 10 mg BID SAVANNA Administration Sodium Chloride 500 mls @ 50 mls/hr 06/27/19 15:00 Nacl 0.9% 500 Ml IV DIRECT SAVANNA Levofloxacin/Dextrose 750 mg in 150 mls @ 100 mls/hr 06/29/19 10:00 Levaquin 750mg/150ml IV Q24HR SAVANNA Protocol Insulin Human Lispro 0 unit 06/28/19 22:00 06/29/19 08:46 Humalog SUB-Q 4 unit ACHS SAVANNA Administration Protocol Morphine Sulfate 60 mg 06/27/19 17:13 06/28/19 21:50 Ms Contin Er PO 60 mg BID PRN Administration Pain, Moderate (4-6) Nifedipine 30 mg 06/28/19 10:00 06/28/19 11:04 Procardia Xl PO 30 mg QDAY SAVANNA Administration Ondansetron HCl 4 mg 06/27/19 17:06 Zofran IV Q8H PRN Nausea And Vomiting Oxycodone HCl 30 mg 06/27/19 17:15 06/29/19 00:50 Roxicodone PO 30 mg Q6H PRN Administration Pain, Moderate (4-6),BREAKTHRU Sodium Chloride 10 ml 06/27/19 22:00 06/28/19 21:45 Sodium Chloride Flush Syringe 10 Ml IV 10 ml BID SAVANNA Administration Sodium Chloride 10 ml 06/27/19 17:06 Sodium Chloride Flush Syringe 10 Ml IV PRN PRN LINE FLUSH Nutrition/Malnutrition Assess - Dietary Evaluation Nutrition/Malnutrition Findings: Nutrition Notes Start: 06/28/19 09:53 Freq: Status: Active Protocol: Document 06/28/19 09:53 AMIRA (Rec: 06/28/19 10:27 AMIRA [id number]) Co-Sign 06/28/19 09:53 LP Nutrition Notes Need for Assessment generated from: MD Order,MST Initial or Follow up Assessment Current Diagnosis Diabetes,Hypertension Other Pertinent Diagnosis Multiple myeloma, Anemia, S/P IVC filter placement Current Diet Diet supplement Labs/Tests Na 131 K 3.3 Cl 97.3 BG 277 Pertinent Medications Reviewed Height 5 ft 2 in Weight 62.9 kg Usual Body Weight 61.4 kg [place] Body Weight (kg) 50.00 BMI 25.3 Intake Prior to Admission Good Weight Status Overweight Subjective/Other Information MD consult for poor oral intake, and MST assessment. 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 Stated she didn' t experience any wt loss. Noted full glucerna at bedside . Burn Absent Trauma Absent GI Symptoms None Minimum of two criteria No physical signs of malnutrition #1 Nutrition Diagnosis Predicted suboptimal energy intake Etiology Multiple myeloma, lethargy As Evidenced by Signs and Symptoms Full glucerna at bedside Is patient on ventilator? No Is Patient Ambulatory and/or Out of Bed No REE-([facility]-confined to bed) 1440.840 [facility]culation [facility] Additional Notes Protein: 50-63g/kg (0.8-1g/kg) Fluid: 1ml/kcal Nutrition Intervention Change Diet Order: Advance diet when medically feasible Goal #1 Meet at least 75% of energy and protein needs via PO and ONS intake Anticipated Discharge Needs: Cardiac consistent carb diet Follow-Up By: 07/02/19 Additional Comments F/U for diet advancement, PO, and ONS intakes.
[2019-06-29 11:30] LABS: Basophils % (Manual) 0 % (0.0-1.8); Eosinophils % (Manual) 0 % (0.0-4.3); Target Cells Few; Total Cells Counted 100
[2019-06-29 11:31] LABS: Schistocytes Rare; Tear Drop Cells Few
[2019-06-29 11:32] LABS: Giant Platelets Few; Hypochromasia Few; Platelet Estimate Consistent w Auto
[2019-06-29] MEDS: NIFEdipine XL 30 MG TAB PO SCH (14:11)
[2019-06-29] MEDS: DICLOFENAC EC 25 MG TAB PO SCH (14:19)
[2019-06-29] MEDS: FAMOTIDINE 10 MG TAB PO SCH ×2 (14:20→22:36)
[2019-06-29] MEDS ORDERED: MAGNESIUM HYDROXIDE (MOM) ORAL LIQD UDC PO ONE (22:35)
[2019-06-30] MEDS: DOCUSATE SODIUM 100 MG CAP PO SCH ×2 (01:11→09:09)
[2019-06-30 08:08] LABS: BUN/Creatinine Ratio 29; Blood Urea Nitrogen 20 mg/dL (7-17); Hemolysis Index 0
[2019-06-30 08:30] LABS: Hemoglobin 6.7 gm/dl (10.1-14.3); Mean Corpuscular HGB Conc 34 % (30-34); Mean Corpuscular Volume 91 fl (79-97); Red Blood Count 2.14 M/mm3 (3.65-5.03); Red Cell Distribution Width 18.4 % (13.2-15.2)
[2019-06-30] MEDS: INSULIN LISPRO 100 UNIT/ML SUB-Q SCH ×3 (08:34→17:18)
[2019-06-30 08:57] LABS: Hematocrit 19.4 % (30.3-42.9); Platelet Count 28 K/mm3 (140-440)
[2019-06-30] MEDS: FAMOTIDINE 10 MG TAB PO SCH (09:09)
[2019-06-30] MEDS ORDERED: SODIUM CHLORIDE 0.9% 500 ML 500 ML IV ONE (10:04)
--- NOTE | 2019-06-30 10:04 | Progress Note ---
Assessment and Plan Assessment and plan: Multiple myeloma. Hematology following Pancytopenia. Etiology secondary to above. Thrombocytopenia. Platelet transfusion as needed Leukopenia. Continue neutropenic precautions. Empiric IV antibiotics. Hypokalemia. Replete potassium. DM II. Add lantus. Cont. SSRI and Accuchecks HTN. Cont. antihypertensive meds Anemia. Etiology secondary to above. Transfuse PRBCs for Hgb < 7.0 History Interval history: No new issues overnight. Hospitalist Physical - Constitutional Vitals: Temp Pulse Resp BP Pulse Ox 98.1 F 89 18 105/52 99 06/30/19 05:52 06/30/19 05:52 06/30/19 05:52 06/30/19 05:52 06/30/19 07:39 General appearance: Present: no acute distress - EENT Eyes: Present: PERRL, EOM intact ENT: hearing intact, clear oral mucosa, dentition normal - Neck Neck: Present: supple, normal ROM - Respiratory Respiratory effort: normal Respiratory: bilateral: CTA - Cardiovascular Rhythm: regular Heart Sounds: Present: S1 & S2. Absent: gallop, rub - Extremities Extremities: no ischemia, No edema, Full ROM - Abdominal General gastrointestinal: soft, non-tender, non-distended, normal bowel sounds - Integumentary Integumentary: Present: clear, warm, dry - Neurologic Neurologic: CNII-XII intact, moves all extremities Results - Labs CBC & Chem 7: 06/30/19 07:17 06/30/19 07:17 Labs: Laboratory Last Values WBC 1.4 K/mm3 (4.5-11.0) L* 06/30/19 07:17 RBC 2.14 M/mm3 (3.65-5.03) L 06/30/19 07:17 Hgb 6.7 gm/dl (10.1-14.3) L 06/30/19 07:17 Hct 19.4 % (30.3-42.9) L* 06/30/19 07:17 MCV 91 fl (79-97) 06/30/19 07:17 MCH 31 pg (28-32) 06/30/19 07:17 MCHC 34 % (30-34) 06/30/19 07:17 RDW 18.4 % (13.2-15.2) H 06/30/19 07:17 Plt Count 28 K/mm3 (140-440) L 06/30/19 07:17 Lymph % (Auto) Transitional Living Specialist 06/30/19 07:17 [place] % (Auto) Transitional Living Specialist 06/30/19 07:17 Baso % (Auto) Transitional Living Specialist 06/30/19 07:17 Add Manual Diff Complete 06/29/19 10:15 Total Counted 100 06/29/19 10:15 Seg Neutrophils % Transitional Living Specialist 06/30/19 07:17 Seg Neuts % (Manual) 44.0 % (40.0-70.0) 06/29/19 10:15 Band Neutrophils % 0 % 06/29/19 10:15 Lymphocytes % (Manual) 32.0 % (13.4-35.0) 06/29/19 10:15 Reactive Lymphs % (Man) 8.0 % 06/29/19 10:15 Monocytes % (Manual) 16.0 % (0.0-7.3) H 06/29/19 10:15 Eosinophils % (Manual) 0 % (0.0-4.3) 06/29/19 10:15 Basophils % (Manual) 0 % (0.0-1.8) 06/29/19 10:15 Metamyelocytes % 0 % 06/29/19 10:15 Myelocytes % 0 % 06/29/19 10:15 Promyelocytes % 0 % 06/29/19 10:15 Blast Cells % 0 % 06/29/19 10:15 Nucleated RBC % Not Reportable 06/29/19 10:15 Seg Neutrophils # Man 0.6 K/mm3 (1.8-7.7) L 06/29/19 10:15 Band Neutrophils # 0.0 K/mm3 06/29/19 10:15 Lymphocytes # (Manual) 0.4 K/mm3 (1.2-5.4) L 06/29/19 10:15 Abs React Lymphs (Man) 0.1 K/mm3 06/29/19 10:15 Monocytes # (Manual) 0.2 K/mm3 (0.0-0.8) 06/29/19 10:15 Eosinophils # (Manual) 0.0 K/mm3 (0.0-0.4) 06/29/19 10:15 Basophils # (Manual) 0.0 K/mm3 (0.0-0.1) 06/29/19 10:15 Metamyelocytes # 0.0 K/mm3 06/29/19 10:15 Myelocytes # 0.0 K/mm3 06/29/19 10:15 Promyelocytes # 0.0 K/mm3 06/29/19 10:15 Blast Cells # 0.0 K/mm3 06/29/19 10:15 WBC Morphology Not Reportable 06/29/19 10:15 Hypersegmented Neuts Not Reportable 06/29/19 10:15 Hyposegmented Neuts Not Reportable 06/29/19 10:15 Hypogranular Neuts Not Reportable 06/29/19 10:15 Smudge Cells Not Reportable 06/29/19 10:15 Toxic Granulation Not Reportable 06/29/19 10:15 Toxic Vacuolation Not Reportable 06/29/19 10:15 Dohle Bodies Not Reportable 06/29/19 10:15 Pelger-Huet Anomaly Not Reportable 06/29/19 10:15 Leticia Rods Not Reportable 06/29/19 10:15 Platelet Estimate Consistent w auto 06/29/19 10:15 Clumped Platelets Not Reportable 06/29/19 10:15 Plt Clumps, EDTA Not Reportable 06/29/19 10:15 Large Platelets Not Reportable 06/29/19 10:15 Giant Platelets Few 06/29/19 10:15 Platelet Satelliting Not Reportable 06/29/19 10:15 Plt Morphology Comment Not Reportable 06/29/19 10:15 RBC Morphology Not Reportable 06/29/19 10:15 Dimorphic RBCs Not Reportable 06/29/19 10:15 Polychromasia Few 06/29/19 10:15 Hypochromasia Few 06/29/19 10:15 Poikilocytosis Not Reportable 06/29/19 10:15 Anisocytosis Not Reportable 06/29/19 10:15 Microcytosis Not Reportable 06/29/19 10:15 Macrocytosis Not Reportable 06/29/19 10:15 Spherocytes Not Reportable 06/29/19 10:15 Pappenheimer Bodies Not Reportable 06/29/19 10:15 Sickle Cells Not Reportable 06/29/19 10:15 Target Cells Few 06/29/19 10:15 Tear Drop Cells Few 06/29/19 10:15 Ovalocytes Not Reportable 06/29/19 10:15 Helmet Cells Not Reportable 06/29/19 10:15 [place] Bodies Not Reportable 06/29/19 10:15 [place] Rings Not Reportable 06/29/19 10:15 Ivonne Cells Not Reportable 06/29/19 10:15 Bite Cells Not Reportable 06/29/19 10:15 Crenated Cell Not Reportable 06/29/19 10:15 Elliptocytes Few 06/29/19 10:15 Acanthocytes (Spur) Not Reportable 06/29/19 10:15 Rouleaux Not Reportable 06/29/19 10:15 Hemoglobin C Crystals Not Reportable 06/29/19 10:15 Schistocytes Rare 06/29/19 10:15 Malaria parasites Not Reportable 06/29/19 10:15 Roger Bodies Not Reportable 06/29/19 10:15 Hem Pathologist Commnt No 06/29/19 10:15 PT 16.1 Sec. (12.2-14.9) H 06/27/19 14:37 INR 1.31 (0.87-1.13) H 06/27/19 14:37 APTT 33.9 Sec. (24.2-36.6) 06/27/19 14:37 Sodium 141 mmol/L (137-145) D 06/30/19 07:17 Potassium 4.7 mmol/L (3.6-5.0) D 06/30/19 07:17 Chloride 105.2 mmol/L (98-107) 06/30/19 07:17 Carbon Dioxide 22 mmol/L (22-30) 06/30/19 07:17 Anion Gap 19 mmol/L 06/30/19 07:17 BUN 20 mg/dL (7-17) H 06/30/19 07:17 Creatinine 0.7 mg/dL (0.7-1.2) 06/30/19 07:17 Estimated GFR > 60 ml/min 06/30/19 07:17 BUN/Creatinine Ratio 29 % 06/30/19 07:17 Glucose 259 mg/dL (65-100) H 06/30/19 07:17 POC Glucose 267 (70-105) H 06/30/19 08:13 Calcium 9.0 mg/dL (8.4-10.2) 06/30/19 07:17 Total Bilirubin 1.90 mg/dL (0.1-1.2) H 06/27/19 14:37 AST 10 units/L (5-40) 06/27/19 14:37 ALT 10 units/L (7-56) 06/27/19 14:37 Alkaline Phosphatase 44 units/L (35-129) 06/27/19 14:37 Troponin T < 0.010 ng/mL (0.00-0.029) 06/27/19 14:37 Total Protein 6.8 g/dL (6.3-8.2) 06/27/19 14:37 Albumin 3.6 g/dL (3.9-5) L 06/27/19 14:37 Albumin/Globulin Ratio 1.1 % 06/27/19 14:37 HCG, Qual Negative (Negative) 06/27/19 14:37 Urine Color Yellow (Yellow) 06/27/19 15:06 Urine Turbidity Slightly-cloudy (Clear) 06/27/19 15:06 Urine pH 5.0 (5.0-7.0) 06/27/19 15:06 Ur Specific Sellers 1.011 (1.003-1.030) 06/27/19 15:06 Urine Protein <15 mg/dl mg/dL (Negative) 06/27/19 15:06 Urine Glucose (UA) >=500 mg/dL (Negative) 06/27/19 15:06 Urine Ketones Neg mg/dL (Negative) 06/27/19 15:06 Urine Blood Sm (Negative) 06/27/19 15:06 Urine Nitrite Neg (Negative) 06/27/19 15:06 Urine Bilirubin Neg (Negative) 06/27/19 15:06 Urine Urobilinogen 2.0 mg/dL (<2.0) 06/27/19 15:06 Ur Leukocyte Esterase Tr (Negative) 06/27/19 15:06 Urine WBC (Auto) 8.0 /HPF (0.0-6.0) H 06/27/19 15:06 Urine RBC (Auto) 7.0 /HPF (0.0-6.0) 06/27/19 15:06 U Epithel Cells (Auto) 5.0 /HPF (0-13.0) 06/27/19 15:06 Urine Bacteria (Auto) 1+ /HPF (Negative) 06/27/19 15:06 Urine Mucus Few /HPF 06/27/19 15:06 Urine Yeast (Budding) Few /HPF 06/27/19 15:06 Urine Opiates Screen Presumptive negative 06/27/19 15:06 Urine Methadone Screen Presumptive negative 06/27/19 15:06 Ur Barbiturates Screen Presumptive negative 06/27/19 15:06 Ur Phencyclidine Scrn Presumptive negative 06/27/19 15:06 Ur Amphetamines Screen Presumptive negative 06/27/19 15:06 U Benzodiazepines Scrn Presumptive negative 06/27/19 15:06 Urine Cocaine Screen Presumptive negative 06/27/19 15:06 U Marijuana (THC) Screen Presumptive negative 06/27/19 15:06 Drugs of Abuse Note Disclamer 06/27/19 15:06 Blood Type A POSITIVE 06/27/19 14:37 Antibody Screen Negative 06/27/19 14:37 Crossmatch See Detail 06/27/19 14:37 Active Medications - Current Medications Current Medications: Generic Name Dose Route Start Last Admin Trade Name Freq PRN Reason Stop Dose Admin Acetaminophen 650 mg 06/27/19 17:06 06/28/19 00:42 Tylenol PO 650 mg Q4H PRN Administration Pain MILD(1-3)/Fever >100.5/TREJO Albuterol 2.5 mg 06/27/19 17:06 Proventil IH Q4HRT PRN Shortness Of Breath Diclofenac Sodium 25 mg 06/28/19 10:00 06/29/19 14:19 Voltaren PO 25 mg DAILY SAVANNA Administration Docusate Sodium 100 mg 06/29/19 23:00 06/30/19 09:09 Colace PO 100 mg BID SAVANNA Administration Famotidine 10 mg 06/27/19 22:00 06/30/19 09:09 Pepcid PO 10 mg BID SAVANNA Administration Sodium Chloride 500 mls @ 50 mls/hr 06/27/19 15:00 Nacl 0.9% 500 Ml IV DIRECT SAVANNA Levofloxacin/Dextrose 750 mg in 150 mls @ 100 mls/hr 06/29/19 10:00 06/30/19 09:09 Levaquin 750mg/150ml IV 100 mls/hr Q24HR SAVANNA Administration Protocol Insulin Human Lispro 0 unit 06/28/19 22:00 06/30/19 08:34 Humalog SUB-Q 4 unit ACHS SAVANNA Administration Protocol Morphine Sulfate 60 mg 06/27/19 17:13 06/28/19 21:50 Ms Contin Er PO 60 mg BID PRN Administration Pain, Moderate (4-6) Nifedipine 30 mg 06/28/19 10:00 06/29/19 14:11 Procardia Xl PO 30 mg QDAY SAVANNA Administration Ondansetron HCl 4 mg 06/27/19 17:06 06/29/19 16:50 Zofran IV 4 mg Q8H PRN Administration Nausea And Vomiting Oxycodone HCl 30 mg 06/27/19 17:15 06/29/19 14:24 Roxicodone PO 30 mg Q6H PRN Administration Pain, Moderate (4-6),BREAKTHRU Sodium Chloride 10 ml 06/27/19 22:00 06/30/19 09:10 Sodium Chloride Flush Syringe 10 Ml IV 10 ml BID SAVANNA Administration Sodium Chloride 10 ml 06/27/19 17:06 Sodium Chloride Flush Syringe 10 Ml IV PRN PRN LINE FLUSH Nutrition/Malnutrition Assess - Dietary Evaluation Nutrition/Malnutrition Findings: Nutrition Notes Start: 06/28/19 09:53 Freq: Status: Active Protocol: Document 06/28/19 09:53 AMIRA (Rec: 06/28/19 10:27 AMIRA [id number]) Co-Sign 06/28/19 09:53 LP Nutrition Notes Need for Assessment generated from: MD Order,MST Initial or Follow up Assessment Current Diagnosis Diabetes,Hypertension Other Pertinent Diagnosis Multiple myeloma, Anemia, S/P IVC filter placement Current Diet Diet supplement Labs/Tests Na 131 K 3.3 Cl 97.3 BG 277 Pertinent Medications Reviewed Height 5 ft 2 in Weight 62.9 kg Usual Body Weight 61.4 kg [place] Body Weight (kg) 50.00 BMI 25.3 Intake Prior to Admission Good Weight Status Overweight Subjective/Other Information MD consult for poor oral intake, and MST assessment. Pt stated that she had a good appetite DOMAIN ARCHITECT. Stated she didn' t experience any wt loss. Noted full glucerna at bedside . Burn Absent Trauma Absent GI Symptoms None Minimum of two criteria No physical signs of malnutrition #1 Nutrition Diagnosis Predicted suboptimal energy intake Etiology Multiple myeloma, lethargy As Evidenced by Signs and Symptoms Full glucerna at bedside Is patient on ventilator? No Is Patient Ambulatory and/or Out of Bed No REE-([facility]-confined to bed) 1440.840 Calculation Used for Recommendations [facility] Additional Notes Protein: 50-63g/kg (0.8-1g/kg) Fluid: 1ml/kcal Nutrition Intervention Change Diet Order: Advance diet when medically feasible Goal #1 Meet at least 75% of energy and protein needs via PO and ONS intake Anticipated Discharge Needs: Cardiac consistent carb diet Follow-Up By: 07/02/19 Additional Comments F/U for diet advancement, PO, and ONS intakes.
[2019-06-30 10:12] LABS: Basophils % (Manual) 0 % (0.0-1.8); Eosinophils % (Manual) 0 % (0.0-4.3); Total Cells Counted 100
[2019-06-30 10:13] LABS: Hypochromasia Few; Schistocytes Rare; Target Cells Few; Tear Drop Cells Few
[2019-06-30 10:15] LABS: Platelet Estimate Consistent w Auto
--- NOTE | 2019-06-30 11:34 | Hem/Onc Progress Note ---
Assessment and Plan 1. Anemia, leukopenia, thrombocytopenia and recent diagnosis of myelodysplastic syndrome. 2. History of multiple myeloma in 2013, status post stem cell transplant and four lines of therapy. Her MDS is what is bothering. I had discussed with the patient regarding referral to [facility]. Without intervention, the prognosis is very poor. Her stem cell transplant and myeloma treatment may have a role in her MDS. Transfusion support for anemia and thrombocytopenia and other supportive care. 3. History of DVT and PE, on inferior vena cava filter. 4. History of right popliteal fossa abnormality and swelling. She was seen by Dr. Ferrell in recent past. 5. The patient has been on Zometa infusions. 6. For the MDS, Revlimid trial was done. 7. For anemia, the patient has been on Procrit. 8. Thrombocytopenia. 9. History of diabetes. 10. We will do transfusion support and look into the right knee pain issues. d/w dr Granado reg the radiology teesting like US or CT for rt knee pt had a sx for her femur fracture I d/w pt reg - guarded prognosis - MDS and Myeloma - post SCT pt has apt to go [facility] [place] - to call them and check if she can be seen earlier I d/w pt reg hospice - not sure if she is mentally ready for same daughter is RN in [place] pt has revlimid at home - which is used for MDS - if she can get it here - we can start same - while in hospital - Patient Problems (1) Myelodysplasia (myelodysplastic syndrome) Current Visit: Yes Status: Acute Subjective Date of service: 06/30/19 Principal diagnosis: MDS Interval history: c/o rt popliteal area pain Objective - Exam Narrative Exam: Pain - rt knee General appearance -no acute distress Performance status - limited self care Eyes - no icterus ENT - no thrush LNs cervical not palpable Neck - no LN Respiratory Normal Breath sounds - CTA anteriorly CVS S1 S2 + Extremities edema General GI Soft Rectal deferred female - deferred Skin warm Musculoskeletal -moves limbs Neurologically alert awake - Constitutional Vitals: Last Vital Signs Temp 98.1 F 06/30/19 05:52 Pulse 89 06/30/19 05:52 Resp 18 06/30/19 05:52 BP 105/52 06/30/19 05:52 Pulse Ox 99 06/30/19 07:39 - Labs Lab Results: Laboratory Results - last 24 hr 06/27/19 06/29/19 06/29/19 14:37 12:32 16:58 WBC RBC Hgb Hct MCV MCH MCHC RDW Plt Count Lymph % (Auto) Leslie % (Auto) Baso % (Auto) Add Manual Diff Total Counted Seg Neutrophils % Seg Neuts % (Manual) Band Neutrophils % Lymphocytes % (Manual) Reactive Lymphs % (Man) Monocytes % (Manual) Eosinophils % (Manual) Basophils % (Manual) Metamyelocytes % Myelocytes % Promyelocytes % Blast Cells % Nucleated RBC % Seg Neutrophils # Man Band Neutrophils # Lymphocytes # (Manual) Abs React Lymphs (Man) Monocytes # (Manual) Eosinophils # (Manual) Basophils # (Manual) Metamyelocytes # Myelocytes # Promyelocytes # Blast Cells # WBC Morphology Hypersegmented Neuts Hyposegmented Neuts Hypogranular Neuts Smudge Cells Toxic Granulation Toxic Vacuolation Dohle Bodies Pelger-Huet Anomaly Leticia Rods Platelet Estimate Clumped Platelets Plt Clumps, EDTA Large Platelets Giant Platelets Platelet Satelliting Plt Morphology Comment RBC Morphology Dimorphic RBCs Polychromasia Hypochromasia Poikilocytosis Anisocytosis Microcytosis Macrocytosis Spherocytes Pappenheimer Bodies Sickle Cells Target Cells Tear Drop Cells Ovalocytes Helmet Cells [place] Bodies [place] Rings [place] Cells Bite Cells Crenated Cell Elliptocytes Acanthocytes (Spur) Rouleaux Hemoglobin C Crystals Schistocytes Malaria parasites Roger Bodies Hem Pathologist Commnt Sodium Potassium Chloride Carbon Dioxide Anion Gap BUN Creatinine Estimated GFR BUN/Creatinine Ratio Glucose POC Glucose 326 H 338 H Calcium Crossmatch See Detail 06/29/19 06/30/19 06/30/19 22:38 07:17 07:17 WBC 1.4 L* RBC 2.14 L Hgb 6.7 L Hct 19.4 L* MCV 91 MCH 31 MCHC 34 RDW 18.4 H Plt Count 28 L Lymph % (Auto) Personal Development Coach Leslie % (Auto) Personal Development Coach Baso % (Auto) Personal Development Coach Add Manual Diff Complete Total Counted 100 Seg Neutrophils % Personal Development Coach Seg Neuts % (Manual) 42.0 Band Neutrophils % 2.0 Lymphocytes % (Manual) 40.0 H Reactive Lymphs % (Man) 4.0 Monocytes % (Manual) 12.0 H Eosinophils % (Manual) 0 Basophils % (Manual) 0 Metamyelocytes % 0 Myelocytes % 0 Promyelocytes % 0 Blast Cells % 0 Nucleated RBC % 4.0 H Seg Neutrophils # Man 0.6 L Band Neutrophils # 0.0 Lymphocytes # (Manual) 0.6 L Abs React Lymphs (Man) 0.1 Monocytes # (Manual) 0.2 Eosinophils # (Manual) 0.0 Basophils # (Manual) 0.0 Metamyelocytes # 0.0 Myelocytes # 0.0 Promyelocytes # 0.0 Blast Cells # 0.0 WBC Morphology Not Reportable Hypersegmented Neuts Not Reportable Hyposegmented Neuts Not Reportable Hypogranular Neuts Not Reportable Smudge Cells Not Reportable Toxic Granulation Not Reportable Toxic Vacuolation Not Reportable Dohle Bodies Not Reportable Pelger-Huet Anomaly Not Reportable Leticia Rods Not Reportable Platelet Estimate Consistent w auto Clumped Platelets Not Reportable Plt Clumps, EDTA Not Reportable Large Platelets Not Reportable Giant Platelets Not Reportable Platelet Satelliting Not Reportable Plt Morphology Comment Not Reportable RBC Morphology Not Reportable Dimorphic RBCs Not Reportable Polychromasia Not Reportable Hypochromasia Few Poikilocytosis Not Reportable Anisocytosis Not Reportable Microcytosis Not Reportable Macrocytosis Not Reportable Spherocytes Not Reportable Pappenheimer Bodies Not Reportable Sickle Cells Not Reportable Target Cells Few Tear Drop Cells Few Ovalocytes Not Reportable Helmet Cells Not Reportable [place] Bodies Not Reportable [place] Rings Not Reportable Ivonne Cells Not Reportable Bite Cells Not Reportable Crenated Cell Not Reportable Elliptocytes Few Acanthocytes (Spur) Not Reportable Rouleaux Not Reportable Hemoglobin C Crystals Not Reportable Schistocytes Rare Malaria parasites Not Reportable Roger Bodies Not Reportable Hem Pathologist Commnt No Sodium 141 D Potassium 4.7 D Chloride 105.2 Carbon Dioxide 22 Anion Gap 19 BUN 20 H Creatinine 0.7 Estimated GFR > 60 BUN/Creatinine Ratio 29 Glucose 259 H POC Glucose 277 H Calcium 9.0 Crossmatch 06/30/19 08:13 WBC RBC Hgb Hct MCV MCH MCHC RDW Plt Count Lymph % (Auto) Leslie % (Auto) Baso % (Auto) Add Manual Diff Total Counted Seg Neutrophils % Seg Neuts % (Manual) Band Neutrophils % Lymphocytes % (Manual) Reactive Lymphs % (Man) Monocytes % (Manual) Eosinophils % (Manual) Basophils % (Manual) Metamyelocytes % Myelocytes % Promyelocytes % Blast Cells % Nucleated RBC % Seg Neutrophils # Man Band Neutrophils # Lymphocytes # (Manual) Abs React Lymphs (Man) Monocytes # (Manual) Eosinophils # (Manual) Basophils # (Manual) Metamyelocytes # Myelocytes # Promyelocytes # Blast Cells # WBC Morphology Hypersegmented Neuts Hyposegmented Neuts Hypogranular Neuts Smudge Cells Toxic Granulation Toxic Vacuolation Dohle Bodies Pelger-Huet Anomaly Leticia Rods Platelet Estimate Clumped Platelets Plt Clumps, EDTA Large Platelets Giant Platelets Platelet Satelliting Plt Morphology Comment RBC Morphology Dimorphic RBCs Polychromasia Hypochromasia Poikilocytosis Anisocytosis Microcytosis Macrocytosis Spherocytes Pappenheimer Bodies Sickle Cells Target Cells Tear Drop Cells Ovalocytes Helmet Cells [place] Bodies [place] Rings [place] Cells Bite Cells Crenated Cell Elliptocytes Acanthocytes (Spur) Rouleaux Hemoglobin C Crystals Schistocytes Malaria parasites Roger Bodies Hem Pathologist Commnt Sodium Potassium Chloride Carbon Dioxide Anion Gap BUN Creatinine Estimated GFR BUN/Creatinine Ratio Glucose POC Glucose 267 H Calcium Crossmatch Medications & Allergies - Medications Allergies/Adverse Reactions: Allergies No Known Allergies Allergy (Verified 05/01/13 12:07) Home Medications: Home Medications Medication Instructions Recorded Confirmed Last Taken Type Dabigatran [Pradaxa] 150 mg PO DAILY 09/03/13 03/15/16 09/02/13 08:30 History 150 mg Diclofenac EC [Voltaren] 25 mg PO DAILY 09/03/13 03/15/16 09/01/13 18:30 History 25 mg Insulin Glargine,Hum.rec.anlog 15 units SQ HS 09/03/13 03/15/16 09/02/13 21:30 History [Lantus Solostar] 15 units Morphine ER [Ms Contin ER] 60 mg PO BID PRN 09/03/13 03/15/16 09/02/13 21:30 History 60 mg NIFEdipine [Nifedipine ER] 30 mg PO DAILY 09/03/13 03/15/16 03/14/16 History 30 mg Oxycodone HCl 30 mg PO Q6HR PRN 09/03/13 03/15/16 03/09/16 History 30 mg Active Medications: Generic Name Dose Route Start Last Admin Trade Name Freq PRN Reason Stop Dose Admin Acetaminophen 650 mg 06/27/19 17:06 06/28/19 00:42 Tylenol PO 650 mg Q4H PRN Administration Pain MILD(1-3)/Fever >100.5/TREJO Albuterol 2.5 mg 06/27/19 17:06 Proventil IH Q4HRT PRN Shortness Of Breath Diclofenac Sodium 25 mg 06/28/19 10:00 06/29/19 14:19 Voltaren PO 25 mg DAILY SAVANNA Administration Docusate Sodium 100 mg 06/29/19 23:00 06/30/19 09:09 Colace PO 100 mg BID SAVANNA Administration Famotidine 10 mg 06/27/19 22:00 06/30/19 09:09 Pepcid PO 10 mg BID SAVANNA Administration Sodium Chloride 500 mls @ 50 mls/hr 06/27/19 15:00 Nacl 0.9% 500 Ml IV DIRECT SAVANNA Levofloxacin/Dextrose 750 mg in 150 mls @ 100 mls/hr 06/29/19 10:00 06/30/19 09:09 Levaquin 750mg/150ml IV 100 mls/hr Q24HR SAVANNA Administration Protocol Insulin Glargine 10 units 06/30/19 22:00 Lantus SUB-Q QHS SAVANNA Insulin Human Lispro 0 unit 06/28/19 22:00 06/30/19 08:34 Humalog SUB-Q 4 unit ACHS SAVANNA Administration Protocol Morphine Sulfate 60 mg 06/27/19 17:13 06/28/19 21:50 Ms Contin Er PO 60 mg BID PRN Administration Pain, Moderate (4-6) Nifedipine 30 mg 06/28/19 10:00 06/29/19 14:11 Procardia Xl PO 30 mg QDAY SAVANNA Administration Ondansetron HCl 4 mg 06/27/19 17:06 06/29/19 16:50 Zofran IV 4 mg Q8H PRN Administration Nausea And Vomiting Oxycodone HCl 30 mg 06/27/19 17:15 06/29/19 14:24 Roxicodone PO 30 mg Q6H PRN Administration Pain, Moderate (4-6),BREAKTHRU Sodium Chloride 10 ml 06/27/19 22:00 06/30/19 09:10 Sodium Chloride Flush Syringe 10 Ml IV 10 ml BID SAVANNA Administration Sodium Chloride 10 ml 06/27/19 17:06 Sodium Chloride Flush Syringe 10 Ml IV PRN PRN LINE FLUSH
[2019-06-30] MEDS: NIFEdipine XL 30 MG TAB PO SCH (16:51)
[2019-06-30] MEDS: DICLOFENAC EC 25 MG TAB PO SCH (17:05)
[2019-06-30] MEDS ORDERED: diphenhydrAMINE 25 MG CAP PO ONE (21:00)
[2019-06-30] MEDS: ACETAMINOPHEN 325 MG TAB PO PRN (21:02)
[2019-06-30] MEDS ORDERED: VANCOMYCIN/NS 1 GM/250 ML 1 GM/250 ML BAG IV ONE (22:00)
[2019-07-01] MEDS: DOCUSATE SODIUM 100 MG CAP PO SCH ×3 (00:30→22:14)
[2019-07-01] MEDS: FAMOTIDINE 10 MG TAB PO SCH ×3 (00:30→22:14)
[2019-07-01] MEDS: INSULIN LISPRO 100 UNIT/ML SUB-Q SCH ×5 (00:32→22:13)
[2019-07-01] MEDS: INSULIN GLARGINE 100 UNITS/ML SUB-Q SCH ×2 (00:32→22:13)
--- NOTE | 2019-07-01 00:51 | Consultation ---
REFERRED BY: Dr. Juarez. REASON FOR CONSULTATION: Anemia, leukopenia, thrombocytopenia, history of multiple myeloma, newly diagnosed myelodysplastic syndrome. HISTORY OF PRESENT ILLNESS: I saw the patient, a 53-year-old female in the medical floor. The patient has history of multiple myeloma. This was originally diagnosed in 2012. She has had 4 lines of chemotherapy and also stem cell transplant at [facility] in 2014. Last regimen was Empliciti, which was the fourth one from 01/2019 along with Pomalyst until April. She recently underwent bone marrow biopsy because of cytopenia and this showed myelodysplastic syndrome. When she came to the clinic, cytopenia ____ she was encouraged to go to the hospital. She is mainly complaining of right popliteal area discomfort, is not able to walk very easily. Other medical issues include anemia, hypertension, diabetes, DVT, PE, status post IVC filter. She was found to be cytopenic. She received transfusion support. At this time, no fever, no headache, no visual disturbances, no ear discharge, no chest pain, generalized weakness present. No abdominal pain, no vomiting, no diarrhea. PAST MEDICAL HISTORY: As above. PAST SURGICAL HISTORY: Hip surgery. SOCIAL HISTORY: . No history of tobacco or alcohol use. His daughter is a nurse in [place]. FAMILY HISTORY: Hypertension. ALLERGIES: None. PRESENT MEDICATIONS: Included antibiotics. PHYSICAL EXAMINATION: VITAL SIGNS: Temperature 98.8, pulse 81, respirations 18, BP 108/52. HEENT: Pallor present, no icterus. NECK: No neck lymph nodes. HEART: S1, S2. LUNGS: Clear to auscultation. ABDOMEN: Soft. EXTREMITIES: No calf tenderness. Right popliteal area swelling present, pain present. NEUROLOGIC: Alert, awake, oriented. LABORATORY DATA: White cell 1.6, hemoglobin 7.4, MCV 88, platelets 12. RADIOLOGY: Knee x-ray was done. Chest x-ray was done. ASSESSMENT AND PLAN: 1. Anemia, leukopenia, thrombocytopenia and recent diagnosis of myelodysplastic syndrome. 2. History of multiple myeloma in 2012, status post stem cell transplant and four lines of therapy. Her MDS is what is bothering. I had discussed with the patient regarding referral to [facility]. Without intervention, the prognosis is very poor. Her stem cell transplant and myeloma treatment may have a role in her MDS. Transfusion support for anemia and thrombocytopenia and other supportive care. 3. History of DVT and PE, on inferior vena cava filter. 4. History of right popliteal fossa abnormality and swelling. She was seen by Dr. Ferrell in recent past. 5. The patient has been on Zometa infusions. 6. For the MDS, Revlimid trial was done. 7. For anemia, the patient has been on Procrit. 8. Thrombocytopenia. 9. History of ____. 10. History of diabetes. 11. We will do transfusion support and look into the right knee pain issues. JOB# [id number] NM/NTS
--- NOTE | 2019-07-01 08:24 | Hem/Onc Progress Note ---
Assessment and Plan 1. Anemia, leukopenia, thrombocytopenia and recent diagnosis of myelodysplastic syndrome. 2. History of multiple myeloma in 2013, status post stem cell transplant and four lines of therapy. Her MDS is what is bothering. I had discussed with the patient regarding referral to [facility]. Without intervention, the prognosis is very poor. Her stem cell transplant and myeloma treatment may have a role in her MDS. Transfusion support for anemia and thrombocytopenia and other supportive care. 3. History of DVT and PE, on inferior vena cava filter. 4. History of right popliteal fossa abnormality and swelling. She was seen by Dr. Ferrell in recent past. 5. The patient has been on Zometa infusions. 6. For the MDS, Revlimid trial was done. 7. For anemia, the patient has been on Procrit. 8. Thrombocytopenia. 9. History of diabetes. 10. We will do transfusion support and look into the right knee pain issues. d/w dr Granado reg the radiology teesting like US or CT for rt knee pt had a sx for her femur fracture I d/w pt reg - guarded prognosis - MDS and Myeloma - post SCT pt has apt to go to [facility] in [place] - to call them and check if she can be seen earlier I d/w pt reg hospice - not sure if she is mentally ready for same daughter is RN in [place] pt has revlimid at home - which is used for MDS - if she can get it here - we can start same - while in hospital 07/01 - d/w dr Shin - ortho referral may help for pts rt knee area pain - Patient Problems (1) Myelodysplasia (myelodysplastic syndrome) Current Visit: Yes Status: Acute Subjective Date of service: 07/01/19 Principal diagnosis: MDS Interval history: c/o t knee - swelling Objective - Exam Narrative Exam: Pain - rt knee General appearance -no acute distress Performance status - limited self care Eyes - no icterus ENT - no thrush LNs cervical not palpable Neck - no LN Respiratory Normal Breath sounds - CTA anteriorly CVS S1 S2 + Extremities edema - swelling rt popliteal area General GI Soft Rectal deferred female - deferred Skin warm Musculoskeletal -moves limbs Neurologically alert awake - Constitutional Vitals: Last Vital Signs Temp 97.9 F 07/01/19 05:46 Pulse 76 07/01/19 05:46 Resp 18 07/01/19 05:46 BP 112/63 07/01/19 05:46 Pulse Ox 97 07/01/19 05:46 - Labs Lab Results: Laboratory Results - last 24 hr 06/27/19 06/30/19 06/30/19 14:37 07:17 08:13 WBC 1.4 L* RBC 2.14 L Hgb 6.7 L Hct 19.4 L* MCV 91 MCH 31 MCHC 34 RDW 18.4 H Plt Count 28 L Lymph % (Auto) Policeman Pleasants % (Auto) Policeman Baso % (Auto) Policeman Add Manual Diff Complete Total Counted 100 Seg Neutrophils % Policeman Seg Neuts % (Manual) 42.0 Band Neutrophils % 2.0 Lymphocytes % (Manual) 40.0 H Reactive Lymphs % (Man) 4.0 Monocytes % (Manual) 12.0 H Eosinophils % (Manual) 0 Basophils % (Manual) 0 Metamyelocytes % 0 Myelocytes % 0 Promyelocytes % 0 Blast Cells % 0 Nucleated RBC % 4.0 H Seg Neutrophils # Man 0.6 L Band Neutrophils # 0.0 Lymphocytes # (Manual) 0.6 L Abs React Lymphs (Man) 0.1 Monocytes # (Manual) 0.2 Eosinophils # (Manual) 0.0 Basophils # (Manual) 0.0 Metamyelocytes # 0.0 Myelocytes # 0.0 Promyelocytes # 0.0 Blast Cells # 0.0 WBC Morphology Not Reportable Hypersegmented Neuts Not Reportable Hyposegmented Neuts Not Reportable Hypogranular Neuts Not Reportable Smudge Cells Not Reportable Toxic Granulation Not Reportable Toxic Vacuolation Not Reportable Dohle Bodies Not Reportable Pelger-Huet Anomaly Not Reportable Leticia Rods Not Reportable Platelet Estimate Consistent w auto Clumped Platelets Not Reportable Plt Clumps, EDTA Not Reportable Large Platelets Not Reportable Giant Platelets Not Reportable Platelet Satelliting Not Reportable Plt Morphology Comment Not Reportable RBC Morphology Not Reportable Dimorphic RBCs Not Reportable Polychromasia Not Reportable Hypochromasia Few Poikilocytosis Not Reportable Anisocytosis Not Reportable Microcytosis Not Reportable Macrocytosis Not Reportable Spherocytes Not Reportable Pappenheimer Bodies Not Reportable Sickle Cells Not Reportable Target Cells Few Tear Drop Cells Few Ovalocytes Not Reportable Helmet Cells Not Reportable Travis-[place] Bodies Not Reportable [place] Rings Not Reportable Ivonne Cells Not Reportable Bite Cells Not Reportable Crenated Cell Not Reportable Elliptocytes Few Acanthocytes (Spur) Not Reportable Rouleaux Not Reportable Hemoglobin C Crystals Not Reportable Schistocytes Rare Malaria parasites Not Reportable Roger Bodies Not Reportable Hem Pathologist Commnt No POC Glucose 267 H Blood Type Antibody Screen Crossmatch See Detail 06/30/19 06/30/19 06/30/19 11:27 12:29 16:25 WBC RBC Hgb Hct MCV MCH MCHC RDW Plt Count Lymph % (Auto) Pleasants % (Auto) Baso % (Auto) Add Manual Diff Total Counted Seg Neutrophils % Seg Neuts % (Manual) Band Neutrophils % Lymphocytes % (Manual) Reactive Lymphs % (Man) Monocytes % (Manual) Eosinophils % (Manual) Basophils % (Manual) Metamyelocytes % Myelocytes % Promyelocytes % Blast Cells % Nucleated RBC % Seg Neutrophils # Man Band Neutrophils # Lymphocytes # (Manual) Abs React Lymphs (Man) Monocytes # (Manual) Eosinophils # (Manual) Basophils # (Manual) Metamyelocytes # Myelocytes # Promyelocytes # Blast Cells # WBC Morphology Hypersegmented Neuts Hyposegmented Neuts Hypogranular Neuts Smudge Cells Toxic Granulation Toxic Vacuolation Dohle Bodies Pelger-Huet Anomaly Leticia Rods Platelet Estimate Clumped Platelets Plt Clumps, EDTA Large Platelets Giant Platelets Platelet Satelliting Plt Morphology Comment RBC Morphology Dimorphic RBCs Polychromasia Hypochromasia Poikilocytosis Anisocytosis Microcytosis Macrocytosis Spherocytes Pappenheimer Bodies Sickle Cells Target Cells Tear Drop Cells Ovalocytes Helmet Cells Travis-[place] Bodies [place] Rings [place] Cells Bite Cells Crenated Cell Elliptocytes Acanthocytes (Spur) Rouleaux Hemoglobin C Crystals Schistocytes Malaria parasites Roger Bodies Hem Pathologist Commnt POC Glucose 268 H 343 H Blood Type A POSITIVE Antibody Screen Negative Crossmatch See Detail 06/30/19 06/30/19 07/01/19 17:19 22:02 07:56 WBC RBC Hgb Hct MCV MCH MCHC RDW Plt Count Lymph % (Auto) Pleasants % (Auto) Baso % (Auto) Add Manual Diff Total Counted Seg Neutrophils % Seg Neuts % (Manual) Band Neutrophils % Lymphocytes % (Manual) Reactive Lymphs % (Man) Monocytes % (Manual) Eosinophils % (Manual) Basophils % (Manual) Metamyelocytes % Myelocytes % Promyelocytes % Blast Cells % Nucleated RBC % Seg Neutrophils # Man Band Neutrophils # Lymphocytes # (Manual) Abs React Lymphs (Man) Monocytes # (Manual) Eosinophils # (Manual) Basophils # (Manual) Metamyelocytes # Myelocytes # Promyelocytes # Blast Cells # WBC Morphology Hypersegmented Neuts Hyposegmented Neuts Hypogranular Neuts Smudge Cells Toxic Granulation Toxic Vacuolation Dohle Bodies Pelger-Huet Anomaly Leticia Rods Platelet Estimate Clumped Platelets Plt Clumps, EDTA Large Platelets Giant Platelets Platelet Satelliting Plt Morphology Comment RBC Morphology Dimorphic RBCs Polychromasia Hypochromasia Poikilocytosis Anisocytosis Microcytosis Macrocytosis Spherocytes Pappenheimer Bodies Sickle Cells Target Cells Tear Drop Cells Ovalocytes Helmet Cells Travis-[place] Bodies [place] Rings [place] Cells Bite Cells Crenated Cell Elliptocytes Acanthocytes (Spur) Rouleaux Hemoglobin C Crystals Schistocytes Malaria parasites Roger Bodies Hem Pathologist Commnt POC Glucose 291 H 325 H 214 H Blood Type Antibody Screen Crossmatch Medications & Allergies - Medications Allergies/Adverse Reactions: Allergies No Known Allergies Allergy (Verified 05/01/13 12:07) Home Medications: Home Medications Medication Instructions Recorded Confirmed Last Taken Type Dabigatran [Pradaxa] 150 mg PO DAILY 09/03/13 03/15/16 09/02/13 08:30 History 150 mg Diclofenac EC [Voltaren] 25 mg PO DAILY 09/03/13 03/15/16 09/01/13 18:30 History 25 mg Insulin Glargine,Hum.rec.anlog 15 units SQ HS 09/03/13 03/15/16 09/02/13 21:30 History [Lantus Solostar] 15 units Morphine ER [Ms Contin ER] 60 mg PO BID PRN 09/03/13 03/15/16 09/02/13 21:30 History 60 mg NIFEdipine [Nifedipine ER] 30 mg PO DAILY 09/03/13 03/15/16 03/14/16 History 30 mg Oxycodone HCl 30 mg PO Q6HR PRN 09/03/13 03/15/16 03/09/16 History 30 mg Active Medications: Generic Name Dose Route Start Last Admin Trade Name Freq PRN Reason Stop Dose Admin Acetaminophen 650 mg 11/14/19 17:06 06/30/19 21:02 Tylenol PO 650 mg Q4H PRN Administration Pain MILD(1-3)/Fever >100.5/TREJO Albuterol 2.5 mg 06/27/19 17:06 Proventil IH Q4HRT PRN Shortness Of Breath Diclofenac Sodium 25 mg 06/28/19 10:00 06/30/19 17:05 Voltaren PO 25 mg DAILY SAVANNA Administration Docusate Sodium 100 mg 06/29/19 23:00 07/01/19 00:30 Colace PO 100 mg BID SAVANNA Administration Famotidine 10 mg 06/27/19 22:00 07/01/19 00:30 Pepcid PO 10 mg BID SAVANNA Administration Sodium Chloride 500 mls @ 50 mls/hr 06/27/19 15:00 06/30/19 14:56 Nacl 0.9% 500 Ml IV 50 mls/hr DIRECT SAVANNA Administration Levofloxacin/Dextrose 750 mg in 150 mls @ 100 mls/hr 06/29/19 10:00 06/30/19 09:09 Levaquin 750mg/150ml IV 100 mls/hr Q24HR SAVANNA Administration Protocol Insulin Glargine 10 units 06/30/19 22:00 07/01/19 00:32 Lantus SUB-Q 10 units QHS SAVANNA Administration Insulin Human Lispro 0 unit 06/28/19 22:00 07/01/19 00:32 Humalog SUB-Q 6 unit ACHS SAVANNA Administration Protocol Morphine Sulfate 60 mg 06/27/19 17:13 06/28/19 21:50 Ms Contin Er PO 60 mg BID PRN Administration Pain, Moderate (4-6) Nifedipine 30 mg 06/28/19 10:00 06/30/19 16:51 Procardia Xl PO Not Given [facility] Ondansetron HCl 4 mg 06/27/19 17:06 06/29/19 16:50 Zofran IV 4 mg Q8H PRN Administration Nausea And Vomiting Oxycodone HCl 30 mg 06/27/19 17:15 06/29/19 14:24 Roxicodone PO 30 mg Q6H PRN Administration Pain, Moderate (4-6),BREAKTHRU Sodium Chloride 10 ml 06/27/19 22:00 07/01/19 02:46 Sodium Chloride Flush Syringe 10 Ml IV 10 ml BID SAVANNA Administration Sodium Chloride 10 ml 06/27/19 17:06 Sodium Chloride Flush Syringe 10 Ml IV PRN PRN LINE FLUSH
--- NOTE | 2019-07-01 09:52 | Ultrasound Report ---
Limited right leg Ultrasound HISTORY: popliteal cyst . Pain in the posterior aspect of the knee TECHNIQUE: Grayscale and color Doppler imaging performed. COMPARISON: None FINDINGS: No popliteal fossa cyst, mass, or collection is identified. Blood flow is demonstrated in t he popliteal vein. There is very mild subcutaneous edema. IMPRESSION: Very mild subcutaneous edema. Otherwise unremarkable exam. Signer Name: Satinder Duffy MD Signed: 07/01/2019 9:47 AM Workstation Name: [id number]
[2019-07-01] MEDS: DICLOFENAC EC 25 MG TAB PO SCH (10:06)
[2019-07-01] MEDS: NIFEdipine XL 30 MG TAB PO SCH (10:06)
[2019-07-01 11:23] LABS: Hematocrit 29.1 % (30.3-42.9); Hemoglobin 10.1 gm/dl (10.1-14.3); Mean Corpuscular HGB Conc 35 % (30-34); Mean Corpuscular Volume 89 fl (79-97); Red Blood Count 3.28 M/mm3 (3.65-5.03); Red Cell Distribution Width 18.2 % (13.2-15.2)
[2019-07-01 11:27] LABS: Platelet Count 26 K/mm3 (140-440)
[2019-07-01 11:42] LABS: BUN/Creatinine Ratio 40; Blood Urea Nitrogen 16 mg/dL (7-17); Calcium 8.7 mg/dL (8.4-10.2); Hemolysis Index 24
[2019-07-01 12:20] LABS: Anisocytosis 1+; Band Neutrophils # (Manual) 0.1 K/mm3; Poikilocytosis 1+; Total Cells Counted 50
[2019-07-01 12:21] LABS: Burr Cells Few; Ovalocytes Few; Schistocytes Few
[2019-07-01 12:22] LABS: Platelet Estimate Consistent w Auto; Target Cells Rare; Tear Drop Cells Few
[2019-07-01] MEDS ORDERED: LACTULOSE 20 GM/30 ML ORAL LIQD PO STA (13:01)
--- NOTE | 2019-07-01 15:51 | Progress Note ---
Assessment and Plan SIRS with organ dysfunction--Bone marrow Fever pancytopenia sec to Myelodysplasia Multiple myeloma. Hematology following 1. Anemia, leukopenia, thrombocytopenia and recent diagnosis of myelodysplastic syndrome. 2. History of multiple myeloma in 2012, status post stem cell transplant and four lines of therapy. Her MDS is what is bothering. I had discussed with the patient regarding referral to [facility]. Without intervention, the prognosis is very poor. Her stem cell transplant and myeloma treatment may have a role in her MDS. Transfusion support for anemia and thrombocytopenia and other supportive care. I d/w pt reg - guarded prognosis - MDS and Myeloma - post SCT pt has apt to go to [facility] in [place] - to call them and check if she can be seen earlier I d/w pt reg hospice - not sure if she is mentally ready for same daughter is RN in [place] pt has revlimid at home - which is used for MDS - cleared from ortho - OP follow up Pancytopenia. Etiology secondary to above Anemia, leukopenia, thrombocytopenia and recent diagnosis of myelodysplastic syndrome. Thrombocytopenia. Platelet transfusion as needed Leukopenia. Continue neutropenic precautions. Empiric IV antibiotics. Hypokalemia. Replete potassium. DM II. Add lantus. Cont. SSRI and Accuchecks HTN. Cont. antihypertensive meds Anemia. Etiology secondary to above. Transfuse PRBCs for Hgb < 7.0 Follow up with [facility] Subjective Date of service: 07/01/19 Principal diagnosis: MDS Interval history: Pancytopenia and MDS] Feeling weak Objective - Constitutional Vitals: Vital Signs - 12hr 07/01/19 07/01/19 07/01/19 05:46 08:40 10:08 Temperature 97.9 F Pulse Rate 76 Respiratory 18 Rate Blood Pressure 112/63 145/73 O2 Sat by Pulse 97 95 Oximetry 07/01/19 11:16 Temperature 98.4 F Pulse Rate 86 Respiratory 16 Rate Blood Pressure 105/56 O2 Sat by Pulse 95 Oximetry General appearance: Present: no acute distress, well-nourished - EENT Eyes: PERRL, EOM intact ENT: hearing intact, clear oral mucosa Ears: bilateral: normal - Neck Neck: supple, normal ROM - Respiratory Respiratory effort: normal Respiratory: bilateral: CTA - Breasts Breasts: normal - Cardiovascular Heart rate: 78 Rhythm: regular Heart Sounds: Present: S1 & S2. Absent: gallop, rub Extremities: no ischemia, pulses intact, No edema, normal color, Full ROM - Gastrointestinal General gastrointestinal: Present: soft, non-tender, non-distended, normal bowel sounds Rectal Exam: deferred - Genitourinary Female genitourinary: normal - Integumentary Integumentary: clear, warm, dry - Musculoskeletal Musculoskeletal: 1, strength equal bilaterally - Neurologic Neurologic: moves all extremities - Psychiatric Psychiatric: memory intact, appropriate mood/affect, intact judgment & insight - Labs CBC & Chem 7: 07/02/19 04:46 07/02/19 04:46 Labs: Abnormal lab results 06/27/19 06/30/19 06/30/19 Range/Units 14:37 11:27 16:25 WBC (4.5-11.0) K/mm3 RBC (3.65-5.03) M/mm3 Hct (30.3-42.9) % MCHC (30-34) % RDW (13.2-15.2) % Plt Count (140-440) K/mm3 Eosinophils % (Manual) (0.0-4.3) % Basophils % (Manual) (0.0-1.8) % Seg Neutrophils # Man (1.8-7.7) K/mm3 Lymphocytes # (Manual) (1.2-5.4) K/mm3 Carbon Dioxide (22-30) mmol/L Creatinine (0.7-1.2) mg/dL Glucose (65-100) mg/dL POC Glucose 343 H (70-105) Crossmatch See Detail See Detail 06/30/19 06/30/19 07/01/19 Range/Units 17:19 22:02 07:56 WBC (4.5-11.0) K/mm3 RBC (3.65-5.03) M/mm3 Hct (30.3-42.9) % MCHC (30-34) % RDW (13.2-15.2) % Plt Count (140-440) K/mm3 Eosinophils % (Manual) (0.0-4.3) % Basophils % (Manual) (0.0-1.8) % Seg Neutrophils # Man (1.8-7.7) K/mm3 Lymphocytes # (Manual) (1.2-5.4) K/mm3 Carbon Dioxide (22-30) mmol/L Creatinine (0.7-1.2) mg/dL Glucose (65-100) mg/dL POC Glucose 291 H 325 H 214 H (70-105) Crossmatch 07/01/19 07/01/19 07/01/19 Range/Units 10:26 10:26 11:23 WBC 1.3 L* (4.5-11.0) K/mm3 RBC 3.28 L (3.65-5.03) M/mm3 Hct 29.1 L D (30.3-42.9) % MCHC 35 H (30-34) % RDW 18.2 H (13.2-15.2) % Plt Count 26 L (140-440) K/mm3 Eosinophils % (Manual) 6.0 H (0.0-4.3) % Basophils % (Manual) 4.0 H (0.0-1.8) % Seg Neutrophils # Man 0.6 L (1.8-7.7) K/mm3 Lymphocytes # (Manual) 0.4 L (1.2-5.4) K/mm3 Carbon Dioxide 19 L (22-30) mmol/L Creatinine 0.4 L (0.7-1.2) mg/dL Glucose 244 H (65-100) mg/dL POC Glucose 304 H (70-105) Crossmatch
[2019-07-01] MEDS: oxyCODONE 5 MG TAB PO PRN (22:22)
--- NOTE | 2019-07-02 05:03 | Hem/Onc Progress Note ---
Assessment and Plan 1. Anemia, leukopenia, thrombocytopenia and recent diagnosis of myelodysplastic syndrome. 2. History of multiple myeloma in 2013, status post stem cell transplant and four lines of therapy. Her MDS is what is bothering. I had discussed with the patient regarding referral to [facility]. Without intervention, the prognosis is very poor. Her stem cell transplant and myeloma treatment may have a role in her MDS. Transfusion support for anemia and thrombocytopenia and other supportive care. 3. History of DVT and PE, on inferior vena cava filter. 4. History of right popliteal fossa abnormality and swelling. She was seen by Dr. Ferrell in recent past. 5. The patient has been on Zometa infusions. 6. For the MDS, Revlimid trial was done. 7. For anemia, the patient has been on Procrit. 8. Thrombocytopenia. 9. History of diabetes. 10. We will do transfusion support and look into the right knee pain issues. d/w dr Granado reg the radiology teesting like US or CT for rt knee pt had a sx for her femur fracture I d/w pt reg - guarded prognosis - MDS and Myeloma - post SCT pt has apt to go to [facility] [place] - to call them and check if she can be seen earlier I d/w pt reg hospice - not sure if she is mentally ready for same daughter is RN in [place] pt has revlimid at home - which is used for MDS - if she can get it here - we can start same - while in hospital 07/02 - d/w dr Shin - ortho referral done once cleared from ortho - OP follow up - Patient Problems (1) Myelodysplasia (myelodysplastic syndrome) Current Visit: Yes Status: Acute Subjective Date of service: 07/02/19 Principal diagnosis: MDs Interval history: c/o rt knee - popliteal fossa pain Objective - Exam Narrative Exam: Pain - rt knee General appearance -no acute distress Performance status - limited self care Eyes - no icterus ENT - no thrush LNs cervical not palpable Neck - no LN Respiratory Normal Breath sounds - CTA anteriorly CVS S1 S2 + Extremities edema - swelling rt popliteal area General GI Soft Rectal deferred female - deferred Skin warm Musculoskeletal -moves limbs Neurologically alert awake - Constitutional Vitals: Last Vital Signs Temp 98.3 F 07/01/19 21:08 Pulse 86 07/01/19 21:08 Resp 20 07/01/19 23:22 BP 139/72 07/01/19 21:08 Pulse Ox 98 07/01/19 22:30 - Labs Lab Results: Laboratory Results - last 24 hr 07/01/19 07/01/19 07/01/19 07:56 10:26 10:26 WBC 1.3 L* RBC 3.28 L Hgb 10.1 D Hct 29.1 L D MCV 89 MCH 31 MCHC 35 H RDW 18.2 H Plt Count 26 L Ralls % (Auto) Professor [employer] Add Manual Diff Complete Total Counted 50 Seg Neutrophils % Professor [employer] Seg Neuts % (Manual) 46.0 Band Neutrophils % 4.0 Lymphocytes % (Manual) 32.0 Reactive Lymphs % (Man) 2.0 Monocytes % (Manual) 6.0 Eosinophils % (Manual) 6.0 H Basophils % (Manual) 4.0 H Metamyelocytes % 0 Myelocytes % 0 Promyelocytes % 0 Blast Cells % 0 Nucleated RBC % Not Reportable Seg Neutrophils # Man 0.6 L Band Neutrophils # 0.1 Lymphocytes # (Manual) 0.4 L Abs React Lymphs (Man) 0.0 Monocytes # (Manual) 0.1 Eosinophils # (Manual) 0.1 Basophils # (Manual) 0.1 Metamyelocytes # 0.0 Myelocytes # 0.0 Promyelocytes # 0.0 Blast Cells # 0.0 WBC Morphology Not Reportable Hypersegmented Neuts Not Reportable Hyposegmented Neuts Not Reportable Hypogranular Neuts Not Reportable Smudge Cells Not Reportable Toxic Granulation Not Reportable Toxic Vacuolation Not Reportable Dohle Bodies Not Reportable Pelger-Huet Anomaly Not Reportable Leticia Rods Not Reportable Platelet Estimate Consistent w auto Clumped Platelets Not Reportable Plt Clumps, EDTA Not Reportable Large Platelets Not Reportable Giant Platelets Not Reportable Platelet Satelliting Not Reportable Plt Morphology Comment Not Reportable RBC Morphology Not Reportable Dimorphic RBCs Not Reportable Polychromasia Not Reportable Hypochromasia Not Reportable Poikilocytosis 1+ Anisocytosis 1+ Microcytosis Not Reportable Macrocytosis Not Reportable Spherocytes Not Reportable Pappenheimer Bodies Not Reportable Sickle Cells Not Reportable Target Cells Rare Tear Drop Cells Few Ovalocytes Few Helmet Cells Not Reportable [employer] Bodies Not Reportable Joppa Rings Not Reportable Ivonne Cells Few Bite Cells Not Reportable Crenated Cell Not Reportable Elliptocytes Few Acanthocytes (Spur) Not Reportable Rouleaux Not Reportable Hemoglobin C Crystals Not Reportable Schistocytes Few Malaria parasites Not Reportable Roger Bodies Not Reportable Hem Pathologist Commnt No Sodium 139 Potassium 4.0 Chloride 104.8 Carbon Dioxide 19 L Anion Gap 19 BUN 16 Creatinine 0.4 L Estimated GFR > 60 BUN/Creatinine Ratio 40 Glucose 244 H POC Glucose 214 H Calcium 8.7 07/01/19 07/01/19 07/01/19 11:23 16:25 21:18 WBC RBC Hgb Hct MCV MCH MCHC RDW Plt Count Ralls % (Auto) Add Manual Diff Total Counted Seg Neutrophils % Seg Neuts % (Manual) Band Neutrophils % Lymphocytes % (Manual) Reactive Lymphs % (Man) Monocytes % (Manual) Eosinophils % (Manual) Basophils % (Manual) Metamyelocytes % Myelocytes % Promyelocytes % Blast Cells % Nucleated RBC % Seg Neutrophils # Man Band Neutrophils # Lymphocytes # (Manual) Abs React Lymphs (Man) Monocytes # (Manual) Eosinophils # (Manual) Basophils # (Manual) Metamyelocytes # Myelocytes # Promyelocytes # Blast Cells # WBC Morphology Hypersegmented Neuts Hyposegmented Neuts Hypogranular Neuts Smudge Cells Toxic Granulation Toxic Vacuolation Dohle Bodies Pelger-Huet Anomaly Leticia Rods Platelet Estimate Clumped Platelets Plt Clumps, EDTA Large Platelets Giant Platelets Platelet Satelliting Plt Morphology Comment RBC Morphology Dimorphic RBCs Polychromasia Hypochromasia Poikilocytosis Anisocytosis Microcytosis Macrocytosis Spherocytes Pappenheimer Bodies Sickle Cells Target Cells Tear Drop Cells Ovalocytes Helmet Cells [employer] Bodies [place] Cells Bite Cells Crenated Cell Elliptocytes Acanthocytes (Spur) Rouleaux Hemoglobin C Crystals Schistocytes Malaria parasites Roger Bodies Hem Pathologist Commnt Sodium Potassium Chloride Carbon Dioxide Anion Gap BUN Creatinine Estimated GFR BUN/Creatinine Ratio Glucose POC Glucose 304 H 187 H 228 H Calcium Medications & Allergies - Medications Allergies/Adverse Reactions: Allergies No Known Allergies Allergy (Verified 05/01/13 12:07) Home Medications: Home Medications Medication Instructions Recorded Confirmed Last Taken Type Diclofenac EC [Voltaren] 25 mg PO DAILY 09/03/13 07/02/19 09/01/13 18:30 History 25 mg NIFEdipine [Nifedipine ER] 30 mg PO DAILY 09/03/13 07/02/19 03/14/16 History 30 mg Ibuprofen [Motrin] 200 mg PO TID PRN 07/02/19 07/02/19 Unknown History Insulin Aspart (Nf) [Novolog] 10 units SQ QAM 07/02/19 07/02/19 Unknown History Insulin Glargine,Hum.rec.anlog 15 unit SQ QPM 07/02/19 07/02/19 Unknown History [Basaglar Kwikpen U-100] oxyCODONE /ACETAMINOPHEN [Percocet 1 tab PO Q6HR PRN 07/02/19 07/02/19 Unknown History 5/325] raNITIdine HCl [Acid Principle Software Engineer] 150 mg PO BID 07/02/19 07/02/19 Unknown History Active Medications: Generic Name Dose Route Start Last Admin Trade Name Freq PRN Reason Stop Dose Admin Acetaminophen 650 mg 06/27/19 17:06 06/30/19 21:02 Tylenol PO 650 mg Q4H PRN Administration Pain MILD(1-3)/Fever >100.5/TREJO Albuterol 2.5 mg 06/27/19 17:06 Proventil IH Q4HRT PRN Shortness Of Breath Diclofenac Sodium 25 mg 06/28/19 10:00 07/01/19 10:06 Voltaren PO 25 mg DAILY SAVANNA Administration Docusate Sodium 100 mg 06/29/19 23:00 07/01/19 22:14 Colace PO 100 mg BID SAVANNA Administration Famotidine 10 mg 06/27/19 22:00 07/01/19 22:14 Pepcid PO 10 mg BID SAVANNA Administration Sodium Chloride 500 mls @ 50 mls/hr 06/27/19 15:00 06/30/19 14:56 Nacl 0.9% 500 Ml IV 50 mls/hr DIRECT SAVANNA Administration Levofloxacin/Dextrose 750 mg in 150 mls @ 100 mls/hr 06/29/19 10:00 07/01/19 10:05 Levaquin 750mg/150ml IV 100 mls/hr Q24HR SAVANNA Administration Protocol Insulin Glargine 10 units 06/30/19 22:00 07/01/19 22:13 Lantus SUB-Q 10 units QHS SAVANNA Administration Insulin Human Lispro 0 unit 06/28/19 22:00 11/18/19 22:13 Humalog SUB-Q 3 unit ACHS SAVANNA Administration Protocol Morphine Sulfate 60 mg 06/27/19 17:13 06/28/19 21:50 Ms Contin Er PO 60 mg BID PRN Administration Pain, Moderate (4-6) Nifedipine 30 mg 06/28/19 10:00 07/01/19 10:06 Procardia Xl PO 30 mg QDAY SAVANNA Administration Ondansetron HCl 4 mg 06/27/19 17:06 06/29/19 16:50 Zofran IV 4 mg Q8H PRN Administration Nausea And Vomiting Oxycodone HCl 30 mg 06/27/19 17:15 07/01/19 22:22 Roxicodone PO 30 mg Q6H PRN Administration Pain, Moderate (4-6),BREAKTHRU Sodium Chloride 10 ml 06/27/19 22:00 07/01/19 22:15 Sodium Chloride Flush Syringe 10 Ml IV 10 ml BID SAVANNA Administration Sodium Chloride 10 ml 06/27/19 17:06 Sodium Chloride Flush Syringe 10 Ml IV PRN PRN LINE FLUSH
[2019-07-02] MEDS ORDERED: POLYETHYLENE GLYCOL 3350 17 GM POWDER PO PRN (05:30)
[2019-07-02 06:18] LABS: BUN/Creatinine Ratio 28; Blood Urea Nitrogen 14 mg/dL (7-17); Calcium 8.7 mg/dL (8.4-10.2); Hemolysis Index 5
[2019-07-02 06:19] LABS: Hematocrit 26.4 % (30.3-42.9); Mean Corpuscular HGB Conc 34 % (30-34); Mean Corpuscular Volume 89 fl (79-97); Red Blood Count 2.98 M/mm3 (3.65-5.03); Red Cell Distribution Width 18.2 % (13.2-15.2)
[2019-07-02 06:22] LABS: Platelet Count 15 K/mm3 (140-440)
[2019-07-02 07:12] LABS: Basophils % (Manual) 0 % (0.0-1.8); Total Cells Counted 100
[2019-07-02 07:13] LABS: Anisocytosis 1+; Burr Cells Few; Ovalocytes Few; Poikilocytosis 1+; Schistocytes Few; Target Cells Rare; Tear Drop Cells Few
[2019-07-02 07:14] LABS: Platelet Estimate Consistent w Auto
[2019-07-02] MEDS: INSULIN LISPRO 100 UNIT/ML SUB-Q SCH ×2 (08:14→12:55)
[2019-07-02] MEDS: DICLOFENAC EC 25 MG TAB PO SCH (09:26)
[2019-07-02] MEDS: FAMOTIDINE 10 MG TAB PO SCH (09:26)
[2019-07-02] MEDS: DOCUSATE SODIUM 100 MG CAP PO SCH (09:26)
[2019-07-02] MEDS: NIFEdipine XL 30 MG TAB PO SCH (09:26)
[2019-07-02] MEDS ORDERED: LACTULOSE 20 GM/30 ML ORAL LIQD PO STA (11:00)
--- NOTE | 2019-07-02 14:00 | Consultation ---
History of Present Illness - HPI Consult date: 07/02/19 Consult reason: joint pain Past History Past Medical History: other (see hpi) Past Surgical History: Other (thigh/Hip surgery) Social history: . denies: smoking, alcohol abuse, prescription drug abuse Family history: hypertension Medications and Allergies Allergies Allergy/AdvReac Type Severity Reaction Status Date / Time No Known Allergies Allergy Verified 05/01/13 12:07 Home Medications Medication Instructions Recorded Confirmed Last Taken Type Diclofenac EC [Voltaren] 25 mg PO DAILY 09/03/13 07/02/19 09/01/13 18:30 History 25 mg NIFEdipine [Nifedipine ER] 30 mg PO DAILY 09/03/13 07/02/19 03/14/16 History 30 mg Ibuprofen [Motrin] 200 mg PO TID PRN 07/02/19 07/02/19 Unknown History Insulin Aspart (Nf) [Novolog] 10 units SQ QAM 07/02/19 07/02/19 Unknown History Insulin Glargine,Hum.rec.anlog 15 unit SQ QPM 07/02/19 07/02/19 Unknown History [Basaglar Kwikpen U-100] oxyCODONE /ACETAMINOPHEN [Percocet 1 tab PO Q6HR PRN 07/02/19 07/02/19 Unknown History 5/325] raNITIdine HCl [Acid Stained Glass Installer] 150 mg PO BID 07/02/19 07/02/19 Unknown History Active Meds: Active Medications Acetaminophen (Tylenol) 650 mg PO Q4H PRN PRN Reason: Pain MILD(1-3)/Fever >100.5/TREJO Last Admin: 06/30/19 21:02 Dose: 650 mg Documented by: Albuterol (Proventil) 2.5 mg IH Q4HRT PRN PRN Reason: Shortness Of Breath Diclofenac Sodium (Voltaren) 25 mg PO DAILY [facility] Last Admin: 07/02/19 09:26 Dose: 25 mg Documented by: Docusate Sodium (Colace) 100 mg PO BID [facility] Last Admin: 07/02/19 09:26 Dose: 100 mg Documented by: Famotidine (Pepcid) 10 mg PO BID [facility] Last Admin: 07/02/19 09:26 Dose: 10 mg Documented by: Sodium Chloride (Nacl 0.9% 500 Ml) 500 mls @ 50 mls/hr IV DIRECT [facility] Last Admin: 06/30/19 14:56 Dose: 50 mls/hr Documented by: Levofloxacin/Dextrose (Levaquin 750mg/150ml) 750 mg in 150 mls @ 100 mls/hr IV Q24HR [facility]; Protocol Last Admin: 07/02/19 09:25 Dose: 100 mls/hr Documented by: Insulin Glargine (Lantus) 10 units SUB-Q QHS [facility] Last Admin: 07/01/19 22:13 Dose: 10 units Documented by: Insulin Human Lispro (Humalog) 0 unit SUB-Q ACHS [facility]; Protocol Last Admin: 07/02/19 12:55 Dose: 2 unit Documented by: Morphine Sulfate (Ms Contin Er) 60 mg PO BID PRN PRN Reason: Pain, Moderate (4-6) Last Admin: 06/28/19 21:50 Dose: 60 mg Documented by: Nifedipine (Procardia Xl) 30 mg PO QDAY [facility] Last Admin: 07/02/19 09:26 Dose: 30 mg Documented by: Ondansetron HCl (Zofran) 4 mg IV Q8H PRN PRN Reason: Nausea And Vomiting Last Admin: 06/29/19 16:50 Dose: 4 mg Documented by: Oxycodone HCl (Roxicodone) 30 mg PO Q6H PRN PRN Reason: Pain, Moderate (4-6),BREAKTHRU Last Admin: 07/01/19 22:22 Dose: 30 mg Documented by: Polyethylene Glycol (Miralax [id number]) 17 gm PO QDAY PRN PRN Reason: Constipation Last Admin: 07/02/19 07:20 Dose: 17 gm Documented by: Sodium Chloride (Sodium Chloride Flush Syringe 10 Ml) 10 ml IV BID [facility] Last Admin: 07/02/19 09:26 Dose: 10 ml Documented by: Sodium Chloride (Sodium Chloride Flush Syringe 10 Ml) 10 ml IV PRN PRN PRN Reason: LINE FLUSH Assessment and Plan right knee pain recommend conservative care at this time, f/u in my office in 2 wks
[2019-07-02 14:19] VITALS: BP 140/70
[2019-07-02] MEDS ORDERED: oxyCODONE /ACETAMINOPHEN 5-325MG TAB PO PRN (15:00)
[2019-07-02] MEDS ORDERED: RANITIDINE HCL 150 MG PO SCH (15:15)
[2019-07-02] MEDS ORDERED: SODIUM CHLORIDE 0.9% 1000 ML 1,000 ML IV ONE (16:20)
--- NOTE | 2019-07-02 16:26 | Discharge Summary ---
Providers - Providers Date of Admission: 06/29/19 11:29 Date of discharge: 07/02/19 Attending physician: NASIR GARCIA 06/27/19 16:34 Consult to Physician [CONS] Stat Comment: Consulting Provider: ALEN YUN Physician Instructions: Reason For Exam: multiple myeloma 06/28/19 04:40 Consult to Dietitian/Nutrition [CONS] Stat Physician Instructions: Reason For Exam: Reason for Consult: Poor oral intake 07/01/19 17:40 Consult to Physician [CONS] Routine Comment: Consulting Provider: KURT JAVIER Physician Instructions: Reason For Exam: Rt Knee popliteal cyst Primary care physician: ALTERNATIVE ENERGY ENGINEER Hospitalization Condition: Stable Hospital course: 53 YO Female with Multiple Myeloma, Anemia, HTN, DM, DVT/PE S/P IVC Filter Placement, Chronic Pain presents to ED for evaluation. Pt states that she has experienced generalized weakness over the past 1 week with persistent symptoms over the same time frame. Pt seen and evaluated by her Oncologist, Dr. Yun and instructed to seek further care. EMS notified, and upon arrival the patient was found to be in distress and transported to [facility]. Pt seen and evaluated in ED and found to have symptomatic anemia, and severe thrombocytopenia with Platelet count of 12. Pt transfused with platelets and PRBC. Dr Yun consulted in ED. Pt admitted to medical floor. Pt denies fever, chills, CP, Palpitations, NVD, Trauma, Headache, Dizziness, vision changes, Skin rash, bleeding, hematuria, BRBPR, or recent ill contacts. Prior admission on 07/10/13 reviewed. All listed medication reconciled at time of admission. Symptomatically better 1.SIRS with organ dysfunction--Bone marrow Fever pancytopenia sec to Myelodysplasia 2.Multiple myeloma. Hematology following 1. Anemia, leukopenia, thrombocytopenia and recent diagnosis of myelodysplastic syndrome. 2. History of multiple myeloma in 2012, status post stem cell transplant and four lines of therapy. Her MDS is what is bothering. I had discussed with the patient regarding referral to [facility]. Without intervention, the prognosis is very poor. Her stem cell transplant and myeloma treatment may have a role in her MDS. Transfusion support for anemia and thrombocytopenia and other supportive care. I d/w pt reg - guarded prognosis - MDS and Myeloma - post SCT pt has appointment to go to [facility] [place] - to call them and check if she can be seen earlier I d/w pt reg hospice - not sure if she is mentally ready for same daughter is RN in [place] pt has revlimid at home - which is used for MDS - cleared from ortho - OP follow up 3.Pancytopenia. Etiology secondary to above 4.Anemia, leukopenia, thrombocytopenia and recent diagnosis of myelodysplastic syndrome. 5.Thrombocytopenia. Platelet transfusion as needed 6.Leukopenia. Continue neutropenic precautions. . 7.Hypokalemia. Repleted potassium. 8.DM II. Cont. SSRI and Accuchecks 9.HTN. Cont. antihypertensive meds Follow up with [place] [facility] Disposition: DC-01 TO HOME OR SELFCARE Core Measure Documentation - Palliative Care Palliative Care/ Comfort Measures: Not Applicable - Core Measures Any of the following diagnoses?: none Exam - Constitutional Vitals: Temp Pulse Resp BP Pulse Ox 98.1 F 80 16 140/70 96 07/02/19 12:12 07/02/19 12:12 07/02/19 12:12 07/02/19 12:12 07/02/19 12:12 General appearance: Present: no acute distress, well-nourished - EENT Eyes: Present: PERRL ENT: hearing intact, clear oral mucosa - Neck Neck: Present: supple, normal ROM - Respiratory Respiratory effort: normal Respiratory: bilateral: CTA - Cardiovascular Heart rate: 88 Rhythm: regular Heart Sounds: Present: S1 & S2. Absent: rub, click - Extremities Extremities: no ischemia, pulses intact, pulses symmetrical, No edema Peripheral Pulses: within normal limits - Abdominal General gastrointestinal: Present: soft, non-tender, non-distended, normal bowel sounds Female genitourinary: Present: normal - Rectal Rectal Exam: deferred - Integumentary Integumentary: Present: clear, warm, dry - Musculoskeletal Musculoskeletal: gait normal, strength equal bilaterally - Psychiatric Psychiatric: appropriate mood/affect, intact judgment & insight - Neurologic Neurologic: CNII-XII intact, moves all extremities - Allied Health Allied health notes reviewed: nursing, case management Plan Activity: no restrictions Diet: regular Follow up with: DAVID CAZARES MD [Primary Care Provider] - 3-5 Days ALEN YUN MD [Staff Physician] - 7 Days
[2019-07-02] MEDS ORDERED: INSULIN GLARGINE HUM REC ANLOG 15 UNIT SQ SCH (18:00)
[2019-07-02] MEDS ORDERED: INSULIN GLARGINE 100 UNITS/ML SUB-Q SCH (22:00)
[2019-07-03] MEDS ORDERED: INSULIN LISPRO 100 UNIT/ML SUB-Q SCH (08:00)
[2019-07-03] MEDS ORDERED: NON-FORMULARY EACH (Insulin Aspart (Nf) 10 UNITS) SQ SCH (10:00)
== END 2019-07-02 19:42 | disposition home or self-care (01) | DRG 811 ==
LOC: ED 13:51 → 3A 16:32 → OBSVTOIN 06-29 11:29
PROVIDERS: ADMIT Internal Medicine; ATTEND Internal Medicine
PROC: 30233R1 Transfusion of Nonautologous Platelets into Peripheral Vein, Percutaneous Approach (ICD-10-PCS; principal; 2019-06-28)
PROC: 30233N1 Transfusion of Nonautologous Red Blood Cells into Peripheral Vein, Percutaneous Approach (ICD-10-PCS; 2019-06-30)
DX: D46.9 Myelodysplastic syndrome, unspecified (principal); R65.11 Systemic inflammatory response syndrome (SIRS) of non-infectious origin with acute organ dysfunction; C90.00 Multiple myeloma not having achieved remission; D61.818 Other pancytopenia; E87.6 Hypokalemia; G89.29 Other chronic pain; M25.561 Pain in right knee; I10 Essential (primary) hypertension; E11.9 Type 2 diabetes mellitus without complications; Z86.718 Personal history of other venous thrombosis and embolism; Z86.711 Personal history of pulmonary embolism; Z79.4 Long term (current) use of insulin; Z82.49 Family history of ischemic heart disease and other diseases of the circulatory system
CPT/HCPCS: 36415; 71045; 80048; 80053; 80307; 81001; 82962; 84484; 84703; 85007; 85025; 85610; 85730; 86850; 86900; 86901; 86920; 87040; 87086; 93005; 93010; 94760; 96374; G0378; J0690; J1170; J1815; J1956; J2405; J3370; J7030; J7040; P9035; P9040